=== PATIENT | female | born 1955 | race Caucasian/White ===

== ENCOUNTER → 2017-10-22 08:47 | Outpatient (CLI) | payer OTHER, SELFPAY ==
--- NOTE | 2017-10-22 | DI.MRI.S_ITS ---
PROCEDURE: MR HIP RT WO CON INDICATIONS: RIGHT HIP PAIN TECHNIQUE: Noncontrast coronal T1 spin echo and STIR through the bony pelvis. Coronal and axial T2 fast spin echo with fat saturation, sagittal T1 spin echo, and oblique axial T2 fast spin echo with fat saturation through the hip. COMPARISON: None. FINDINGS: Image quality: Excellent. Bones and joints: Severe osteoporotic changes involving right hip joint is seen with complete loss of superior right hip joint space, extensive subchondral sclerosis and cyst formation in the acetabular roof and superior portion of right femoral head as well as prominent lateral marginal osteophyte formation. There is mild marrow edema involving right femoral neck, likely represent stress reaction. No evidence of fracture or dislocation. There is no evidence of avascular necrosis. Small amount of joint effusion is seen, and no definite loose body is identified. Tendons and ligaments: The gluteus medius and minimus tendons appear intact, without associated muscle atrophy. The nearby proximal iliotibial band also appears intact. The iliopsoas tendon appears intact, without adjacent bursal fluid collections or evidence for impingement syndrome. The origin of the hamstring tendon is intact at the ischial tuberosity, as well as the associated sacrotuberous ligament. The straight and reflected heads of the rectus femoris muscle origin appear intact, as well as the conjoint tendon. The ligamentum teres appears intact where visualized. Labrum and cartilage: Abnormal contour and signal within superior anterior right hip labrum is seen suggestive of labral tear in the absence of intra-articular contrast. There is near-complete loss of articular cartilage in right femoral head. is within normal limits at less than 55 degrees. Soft tissues: Visualized muscles demonstrate normal bulk and internal signal. Quadratus femoris muscle demonstrates no internal edema to suggest ischiofemoral impingement. The proximal sciatic neurovascular bundle appears normal adjacent to the hamstring tendons. No free pelvic fluid. Bladder wall thickness is normal. Genitourinary structures and bowel loops appear normal where visualized. IMPRESSION: 1. Findings consistent with severe right hip joint osteoarthritis and stress reaction involving right femoral neck. No acute fracture or dislocation. No evidence of avascular necrosis. 2. Suggestion of superior anterior right hip labral tear. 3. No gross muscle or tendon signal abnormality. Dictated by: [place] Plaza M.D. on 10/22/2017 at 10:53 Approved by: New Plaza M.D. on 10/22/2017 at 15:16
== END ==
PROVIDERS: Family Provider Family Medicine Geriatric Medicine; PCP Family Medicine Geriatric Medicine; Visit Provider Anesthesiology Pain Medicine
DX: M25.551 Pain in right hip (principal)
CPT/HCPCS: 73721

== ENCOUNTER → 2018-10-28 10:09 | Outpatient (CLI) | payer MEDICARE, OTHER, SELFPAY ==
--- NOTE | 2018-10-28 | DI.RAD.S_ITS ---
PROCEDURE: XR LUMBAR SPINE 2-3V INDICATIONS: LOW BACK AND RIGHT HIP PAIN TECHNIQUE: 3 views of the lumbar spine were acquired. COMPARISON: [facility], MR, L-SPINE WITHOUT CONTRAST, 11/24/2008, 10:59. FINDINGS: Bones: 5 [id number] vertebrae are present. There is normal bony alignment considering the degree of degeneration present. On the lateral view there is near zefl-ke-nfin articulation between the adjacent endplates of L2-L3 and L5-S1. Overall along the lumbosacral spine there is moderately severe to severe degenerative disc disease and from L3 inferiorly facet osteoarthritis becomes progressively more prominent to the L5-S1 level where severe facet hyperostosis is present. These factors result in likelihood of significant spinal and foraminal stenosis becoming more prominent as the sacrum is approached. No vertebral body compression fractures. No suspicious bony lesions. Soft tissues: Overlying bowel gas pattern is normal. No suspicious soft tissue calcifications. IMPRESSION: No trauma found. Degenerative disc disease and facet osteoarthritis is moderately severe to severe along the lumbosacral spine and most prominent over the lower third. Spinal and foraminal stenosis would be expected in that area. Dictated by: Angel Giron M.D. on 10/28/2018 at 10:51 Approved by: Angel Giron M.D. on 10/28/2018 at 10:56
--- NOTE | 2018-10-28 | DI.MRI.S_ITS ---
PROCEDURE: MR HIP RT WO CON INDICATIONS: Anterior right hip pain TECHNIQUE: Noncontrast coronal T1 spin echo and STIR through the bony pelvis. Coronal and axial T2 fast spin echo with fat saturation, sagittal T1 spin echo, and oblique axial T2 fast spin echo with fat saturation through the hip. COMPARISON: [facility], CR, XR HIP W PEL IF DONE EVERARDO 3TO4V, 10/28/2018, 10:31. [facility], MR, MR HIP RT WO CON, 10/22/2017, 9:18. FINDINGS: Image quality: Excellent. Bones and joints: Bone marrow of the pelvic ring and proximal femurs show normal signal throughout on the left but the right hip joint shows edema tracking from the epicenter of the hip joint itself cephalad and caudad, to the intertrochanteric region. This is associated with progression of severe right hip joint osteoarthritis with subchondral cyst formation and [id number]-se-[id number] articulation. A lesser degree of moderate left hip joint osteoarthritis is present.. No intraosseous lesions or fractures. No avascular necrosis of the femoral heads. The visualized lower lumbar spine appears normally aligned. Tendons and ligaments: The gluteus medius and minimus tendons appear intact, without associated muscle atrophy. The nearby proximal iliotibial band also appears intact. The iliopsoas tendon appears intact, without adjacent bursal fluid collections or evidence for impingement syndrome. The origin of the hamstring tendon is intact at the ischial tuberosity, as well as the associated sacrotuberous ligament. The straight and reflected heads of the rectus femoris muscle origin appear intact, as well as the conjoint tendon. The ligamentum teres appears intact where visualized. Labrum and cartilage: The acetabular labrum appears intact in the absence of intra-articular contrast. Cartilage surface of the femoral head appears of normal thickness. The alpha angle of the femur is within normal limits at less than 55 degrees. Soft tissues: Visualized muscles demonstrate normal bulk and internal signal. Quadratus femoris muscle demonstrates no internal edema to suggest ischiofemoral impingement. The proximal sciatic neurovascular bundle appears normal adjacent to the hamstring tendons. No free pelvic fluid. Bladder wall thickness is normal. Genitourinary structures and bowel loops appear normal where visualized except at the left adnexa where a simple appearing cyst measures up to 3.1 x 3.2 cm in maximal axial dimension and 4.0 cm craniocaudad. IMPRESSION: Progression of severe right hip joint osteoarthritis is identified with reference to the comparison study from 10/22/17. This is associated with very severe right hip joint osteoarthritis and moderate left hip joint osteoarthritis. Incidental note is again made of a simple appearing cyst at the left adnexa measuring up to 3.1 x 3.2 x 4.0 cm. Dictated by: Angel Giron M.D. on 10/28/2018 at 16:13 Approved by: Angel Giron M.D. on 10/28/2018 at 16:20
--- NOTE | 2018-10-28 | DI.MRI.S_ITS ---
PROCEDURE: MR LUMBAR SPINE WO CON INDICATIONS: LOW BACK AND RIGHT HIP PAIN TECHNIQUE: Noncontrast sagittal T1 spin echo and T2 fast echo, sagittal STIR, axial T1 and T2 fast spin echo through the lumbar spine. In cases with scoliosis, additional coronal T2 fast spin echo may be performed. COMPARISON: [facility], MR, L-SPINE WITHOUT CONTRAST, 11/24/2008, 10:59. FINDINGS: Image quality: Excellent. Alignment and Curvature: There is normal bony alignment. Bone Marrow: Marrow is of normal overall signal. No acute vertebral body compression fractures. Spinal Cord: Conus medullaris terminates at the L1-L2 level. Visualized cord demonstrates normal signal and size. Paraspinous Soft Tissues: No paravertebral masses. T12-L1: No canal stenosis or foraminal stenosis. Mild left facet hypertrophy. L1-L2: Mild disc bulge. No canal stenosis or foraminal stenosis. L2-L3: Severe chronic disc height loss. Posterior disc plus osteophyte without canal stenosis. Mild bilateral facet hypertrophy. Mild bilateral foraminal narrowing. L3-L4: Severe chronic disc height loss. Posterior disc plus osteophyte. No canal stenosis or foraminal stenosis. L4-L5: Moderate chronic disc height loss. Diffuse posterior disc bulge. Facet and ligament hypertrophy. Borderline canal stenosis. There is a far right lateral disc bulge which impinges upon the right L4 nerve root far laterally. L5-S1: Severe chronic disc height loss. No canal stenosis. Mild right foraminal stenosis. Moderate left foraminal stenosis. Bilateral facet hypertrophy. IMPRESSION: 1. Multilevel degenerative disc disease and facet arthropathy. 2. At L4-L5, there is a far right lateral disc bulge impinging on the right L4 nerve root far laterally. There is also borderline canal stenosis with prominent bilateral facet and ligament hypertrophy. Question: Does this patient have a right L4 radiculopathy? Dictated by: Jey Altamirano M.D. on 10/28/2018 at 15:56 Approved by: Jey Altamirano M.D. on 10/28/2018 at 16:04
--- NOTE | 2018-10-28 | DI.RAD.S_ITS ---
PROCEDURE: XR HIP W PEL IF DONE LT MIN 4V INDICATIONS: LOW BACK AND RIGHT HIP PAIN TECHNIQUE: AP pelvis with lateral view(s) of the bilateral hip(s). COMPARISON: [facility], MR, MR HIP RT WO CON, 10/22/2017, 9:18. FINDINGS: Bones: No fractures or dislocations but there is severe right-sided hip osteoarthritis with subchondral cyst formation and [id number] articulation. This has progressed moderately from the comparison study 10/22/17, MR examination. Pelvic ring appears intact. No suspicious bony lesions. Soft tissues: The visualized bowel gas pattern is normal. No suspicious soft tissue calcifications. IMPRESSION: Bilateral hip joint osteoarthritis is present, severe on the right and moderate on the left. Progression of degenerative hip joint osteoarthritis on the right as compared with a greater degree of subchondral cyst formation with reference to the prior MR study from September of last year. No acute trauma found. Dictated by: Angel Giron M.D. on 10/28/2018 at 10:49 Approved by: Angel Giron M.D. on 10/28/2018 at 10:51
== END ==
PROVIDERS: Family Provider Family Medicine Geriatric Medicine; PCP Family Medicine Geriatric Medicine; Visit Provider Physician Assistant Medical
DX: M51.37 Other intervertebral disc degeneration, lumbosacral region (principal); M47.817 Spondylosis without myelopathy or radiculopathy, lumbosacral region; M51.36 Other intervertebral disc degeneration, lumbar region; M47.816 Spondylosis without myelopathy or radiculopathy, lumbar region; M16.0 Bilateral primary osteoarthritis of hip; M25.551 Pain in right hip; M54.5 Low back pain
CPT/HCPCS: 72100; 72148; 73522; 73721

== ENCOUNTER 2019-06-16 10:53 | Outpatient (RCR) | payer MEDICARE, OTHER, SELFPAY ==
--- NOTE | 2019-06-16 17:24 | PT.OIE ---
Current Diagnoses Unilateral primary osteoarthritis, right hip (06/16/19) Other instability, right hip (06/16/19) Pain in right hip (06/16/19) Visit Care Team Role Provider Type Arlene Bryant MD Attending Provider Non-Staff Family Provider Primary Care Provider Referring Provider Specialty: Family Practice Address: [address] [place] [address], [facility] [place] Email: Physical Therapy Initial Evaluation PT-OP-A Visit Information Start: 06/16/19 11:20 Freq: Status: Active Protocol: Document 06/16/19 11:20 [facility] (Rec: 06/16/19 13:47 [facility] [id number]) Out-Patient Physical Therapy Visit Information Visit Information Visit Type Initial Evaluation Visit Start Time 11:15 Visit Stop Time 12:00 Total Visit Minutes 45 Visit Number 1 PT-OP-B Current Condition Start: 06/16/19 11:20 Freq: Status: Active Protocol: Document 06/16/19 11:20 [facility] (Rec: 06/16/19 13:47 [facility] [id number]) Current Condition History of Current Condition Onset Date 2017 Current Complaints lack of ROM right hip, tightness and decreased flexibilty, pain History of Current Condition adhesive capsulitis. The doctor wants her to focus on ROM but she is not sure what to do on her own Had stem sell procedure done in January of 2018. Did have some Pt after this but it flared her so she stopped. Treatment Goals Patient/Caregiver Goals Pt's goals include improving ROM and decreasing pain Current Functional Impairments (Reported) Functional Limitations- ADL's unable to put on shoes and socks, unable to fully squat , quite a bit of difficulty lifting an object off the floor, getting into and out of the car, going up or down stairs, stadnign for a hour PT-OP-C Subjective Start: 06/16/19 11:20 Freq: Status: Active Protocol: Document 06/16/19 16:54 [facility] (Rec: 06/16/19 17:23 [facility] [email or web address]) OP-PT Pain Assessment Pain Assessment Grid Paper Pain Assessment Grid Completed Yes Location right anterior hip Pain Location Details pain across the right anterior hip and groin Intensity 6 Scale Used Numeric (1 - 10) Frequency Constant Pain Aggravating Factors Changing Position,Exercise, Standing,Walking,Bending, Lifting PT-OP-F Manual Assessment Start: 06/16/19 11:20 Freq: Status: Active Protocol: Document 06/16/19 16:54 [facility] (Rec: 06/16/19 17:23 [facility] [email or web address]) Manual Assessments Soft Tissue Assessment Soft Tissue Mobility Assessment myofascial tightness and tissue guarding throughout the iliopsoas, quadriceps, piriformis on the right. Joint Mobility Assessment Joint Mobility Assessment adhesive capsulitis of the right hip, very limited capsule mobility especially in the posterior capsule PT-OP-J Posture/Palpation/Skin Start: 06/16/19 11:20 Freq: Status: Active Protocol: Document 06/16/19 16:54 [facility] (Rec: 06/16/19 17:23 [facility] [email or web address]) Palpation Assessment Location One Palpation Location anterior head of the femur Palpation Findings Soft Tissue Tightness,Spasm, Muscle Guarding,Trigger Point PT-OP-K Range of Motion Start: 06/16/19 11:20 Freq: Status: Active Protocol: Document 06/16/19 16:54 [facility] (Rec: 06/16/19 17:23 [facility] [email or web address]) Hip Goniometric Range of Motion Hip Right Hip ROM WFL No Testing Position Supine Flexion w/Knee Flexed 85 Straight Leg Raise 50 Extension 5 Abduction 15 Internal Rotation 10 External Rotation 20 Hip ROM Limitations Hip ROM Limitations Soft Tissue Tightness, Contracture Comments adhesvise capsulitis PT-OP-M Strength Start: 06/16/19 11:20 Freq: Status: Active Protocol: Document 06/16/19 16:54 [facility] (Rec: 06/16/19 17:23 [facility] [email or web address]) Hip Strength Hip Manual Muscle Testing Right Flexion (L2) 3+ Fair+ Extension (S1) 4 Good Abduction 4 Good External Rotation 4 Good PT-OP-Q Treatments Start: 06/16/19 11:20 Freq: Status: Active Protocol: Document 06/16/19 16:54 [facility] (Rec: 06/16/19 17:23 [facility] [email or web address]) Therapeutic Exercises Other Exercises 3 Other Exercise Name aquatic exercises packet given for hip ROM Side bilateral Comments pt has access to a private pool 2 Other Exercise Name single knee to 80 degreees on the right with suport Side right Reps/Minutes hold 10-15 minutes 1 Other Exercise Name rock backs with self capsule stretch Side bilateral Manual Therapy Treatment Soft Tissue Mobilization 1 Body Location R over the anterior quads, iliopsoas Mobilization Type Myofascial Release Intensity/Depth Moderate Body Position Supine PT-OP-T Assessment and Plan Start: 06/16/19 11:20 Freq: Status: Active Protocol: Document 06/16/19 16:54 [facility] (Rec: 06/16/19 17:23 [facility] [email or web address]) Physical Therapy Assessment Rehab Potential Rehabilitation Potential Good Evaluation Complexity Number of Personal Factors/Comorbidities 0 Number of Body Systems Impaired 1-2 Clinical Presentation at Evaluation Stable Impairments Impairments Activity Tolerance,Functional Mobility,Pain,Posture,ROM,Soft Tissue Mobility,Strength Goals Four Impairment Limited walking duration due to hip pain to 1-2 miles Custodial Goal (LTG) Halle reports a improvement with walking distance to increase to 3 miles LTG Duration 8 weeks Three Impairment right sided hip pain rated 6/ 10 Alterations Tailor Goal (LTG) With manual therapy techniques and home stretches Halle is able to lessen her pain levels to 2-3/10 Two Impairment Pt has great difficulty with donning and doff socks and shoes on the right Alterations Tailor Goal (LTG) Halle is able to improve hip mobility allowing her to improve ADL's like donning and doffing her shoes and socks LTG Duration 8 weeks One Impairment limited hip ROM on the right Alterations Tailor Goal (LTG) Halle is able to improve right sided hip flexion from 80 degrees to 110 degrees LTG Duration 8 weeks Assessment Summary Assessment Halle presents to physical therapy today with right hip OA. She presents with ROM restrictions especially into flexion. Her pain is 6/10. She is limited with ADL/s that include squatting, donning and doffing shoes and socks, getting into and out of a car, and walking more that a mile. She is guarded throughout the anterior iliopsoas, quadriceps, and posterior glutes and ITB. She was given a home program today for hip ROM and stretches. She will be put on hold for PT after today as our clinic is closing temporarily for the the COVID 19 virus. Halle is a good candidate for PT Physical Therapy Plan Frequency and Duration Frequency of Treatment 1x/Week Duration of Treatment 8 Plan of Care Start Date 06/16/19 Plan of Care End Date 08/17/19 Therapeutic Interventions Therapeutic Interventions Home Exercise Program,Manual Therapy,Patient/Caregiver Education,Self-Care/Home Management,Soft Tissue Mobilization,Therapeutic Exercises Next Visit Focus/Plan Next Note Type Treatment Note Next Visit Plan reassess hip ROM next visit and check in with how exercises are going for home
--- NOTE | 2019-06-16 17:24 | PT.OPPOC ---
Physical, Occupational & Speech Therapy At [facility] Current Diagnoses Unilateral primary osteoarthritis, right hip (06/16/19) Other instability, right hip (06/16/19) Pain in right hip (06/16/19) Visit Care Team Role Provider Type Arlene Bryant MD Attending Provider Non-Staff Family Provider Primary Care Provider Referring Provider Specialty: Family Practice Address: [address] [place] [address], [facility] Email: Plan Of Care PT-OP-T Assessment and Plan Start: 06/16/19 11:20 Freq: Status: Active Protocol: Document 06/16/19 16:54 [facility] (Rec: 06/16/19 17:23 [facility] [email or web address]) Physical Therapy Assessment Rehab Potential Rehabilitation Potential Good Evaluation Complexity Number of Personal Factors/Comorbidities 0 Number of Body Systems Impaired 1-2 Clinical Presentation at Evaluation Stable Impairments Impairments Activity Tolerance,Functional Mobility,Pain,Posture,ROM,Soft Tissue Mobility,Strength Goals Four Impairment Limited walking duration due to hip pain to 1-2 miles Process Control Tech Goal (LTG) Halle reports a improvement with walking distance to increase to 3 miles LTG Duration 8 weeks Three Impairment right sided hip pain rated 6/ 10 Alf Goal (LTG) With manual therapy techniques and home stretches Halle is able to lessen her pain levels to 2-3/10 Two Impairment Pt has great difficulty with donning and doff socks and shoes on the right Alf Goal (LTG) Halle is able to improve hip mobility allowing her to improve ADL's like donning and doffing her shoes and socks LTG Duration 8 weeks One Impairment limited hip ROM on the right Process Control Tech Goal (LTG) Halle is able to improve right sided hip flexion from 80 degrees to 110 degrees LTG Duration 8 weeks Assessment Summary Assessment Halle presents to physical therapy today with right hip OA. She presents with ROM restrictions especially into flexion. Her pain is 6/10. She is limited with ADL/s that include squatting, donning and doffing shoes and socks, getting into and out of a car, and walking more that a mile. She is guarded throughout the anterior iliopsoas, quadriceps, and posterior glutes and ITB. She was given a home program today for hip ROM and stretches. She will be put on hold for PT after today as our clinic is closing temporarily for the the COVID 19 virus. Halle is a good candidate for PT Physical Therapy Plan Frequency and Duration Frequency of Treatment 1x/Week Duration of Treatment 8 Plan of Care Start Date 06/16/19 Plan of Care End Date 08/17/19 Therapeutic Interventions Therapeutic Interventions Home Exercise Program,Manual Therapy,Patient/Caregiver Education,Self-Care/Home Management,Soft Tissue Mobilization,Therapeutic Exercises Next Visit Focus/Plan Next Note Type Treatment Note Next Visit Plan reassess hip ROM next visit and check in with how exercises are going for home Plan of Care Dates Plan of Care Start Date 06/16/19 Plan of Care End Date 08/17/19 Electronically Signed by: Camilla Olivarez, PT 06/16/19 [id number] Please Sign and Return: I have reviewed this Plan of Care and certify that the skilled therapy services above are required to meet the patient?s needs. Physician Signature Date Printed Name and Credentials Clinical Instructor Signature Printed Name and Credentials
--- NOTE | 2019-11-30 14:27 | PT.OPDS ---
Current Diagnoses Unilateral primary osteoarthritis, right hip (06/16/19) Other instability, right hip (06/16/19) Pain in right hip (06/16/19) Visit Care Team Role Provider Type Arlene Bryant MD Attending Provider Non-Staff Family Provider Primary Care Provider Referring Provider Specialty: Family Practice Address: [address] [place], [place] [address]day [place] [address] Email: Visit Number Visit Number 1 Discharge Summary PT-OP-B Current Condition Start: 06/16/19 11:20 Freq: Status: Active Protocol: Document 06/16/19 11:20 [facility] (Rec: 06/16/19 13:47 [facility] [id number]) Current Condition History of Current Condition Onset Date 2017 Current Complaints lack of ROM right hip, tightness and decreased flexibilty, pain History of Current Condition adhesive capsulitis. The doctor wants her to focus on ROM but she is not sure what to do on her own Had stem sell procedure done in of 2017. Did have some Pt after this but it flared her so she stopped. Treatment Goals Patient/Caregiver Goals Pt's goals include improving ROM and decreasing pain Current Functional Impairments (Reported) Functional Limitations- ADL's unable to put on shoes and socks, unable to fully squat , quite a bit of difficulty lifting an object off the floor, getting into and out of the car, going up or down stairs, stadnign for a hour PT-OP-C Subjective Start: 06/16/19 11:20 Freq: Status: Active Protocol: Document 06/16/19 16:54 [facility] (Rec: 06/16/19 17:23 [facility] [email or web address]) OP-PT Pain Assessment Pain Assessment Grid Paper Pain Assessment Grid Completed Yes Location right anterior hip Pain Location Details pain across the right anterior hip and groin Intensity 6 Scale Used Numeric (0 - 10) Frequency Constant Pain Aggravating Factors Changing Position,Exercise, Standing,Walking,Bending, Lifting PT-OP-F Manual Assessment Start: 06/16/19 11:20 Freq: Status: Active Protocol: Document 06/16/19 16:54 [facility] (Rec: 06/16/19 17:23 [facility] [email or web address]) Manual Assessments Soft Tissue Assessment Soft Tissue Mobility Assessment myofascial tightness and tissue guarding throughout the iliopsoas, quadriceps, piriformis on the right. Joint Mobility Assessment Joint Mobility Assessment adhesive capsulitis of the right hip, very limited capsule mobility especially in the posterior capsule PT-OP-J Posture/Palpation/Skin Start: 06/16/19 11:20 Freq: Status: Active Protocol: Document 06/16/19 16:54 [facility] (Rec: 06/16/19 17:23 [facility] [email or web address]) Palpation Assessment Location One Palpation Location anterior head of the femur Palpation Findings Soft Tissue Tightness,Spasm, Muscle Guarding,Trigger Point PT-OP-K Range of Motion Start: 06/16/19 11:20 Freq: Status: Active Protocol: Document 06/16/19 16:54 [facility] (Rec: 06/16/19 17:23 [facility] [email or web address]) Hip Goniometric Range of Motion Hip Right Hip ROM WFL No Testing Position Supine Flexion w/Knee Flexed 85 Straight Leg Raise 50 Extension 5 Abduction 15 Internal Rotation 10 External Rotation 20 Hip ROM Limitations Hip ROM Limitations Soft Tissue Tightness, Contracture Comments adhesvise capsulitis PT-OP-M Strength Start: 06/16/19 11:20 Freq: Status: Active Protocol: Document 06/16/19 16:54 [facility] (Rec: 06/16/19 17:23 [facility] [email or web address]) Hip Strength Hip Manual Muscle Testing Right Flexion (L2) 3+ Fair+ Extension (S1) 4 Good Abduction 4 Good External Rotation 4 Good PT-OP-T Assessment and Plan Start: 06/16/19 11:20 Freq: Status: Active Protocol: Document 11/30/19 14:26 [facility] (Rec: 11/30/19 14:27 [facility] [email or web address]) Physical Therapy Assessment Assessment Summary Assessment Halle has not been seen since the Covid 19 pandemic. She has not returned our phone call to resume PT. SHe will be discharged from PT at this time Physical Therapy Plan Discharge Physical Therapy Discharge Reasons No Longer Attending PT
== END 2019-12-01 10:55 ==
LOC: PHYS 10:53
PROVIDERS: Family Provider Family Medicine; PCP Family Medicine; Referring Provider Family Medicine; Visit Provider Family Medicine
DX: M16.11 Unilateral primary osteoarthritis, right hip (principal); M25.351 Other instability, right hip; M25.551 Pain in right hip
CPT/HCPCS: 97140; 97161

== ENCOUNTER → 2020-11-24 11:45 | Outpatient (CLI) | payer MEDICARE, OTHER, SELFPAY ==
--- NOTE | 2020-11-24 | DI.MRI.S_ITS ---
PROCEDURE: MR LUMBAR SPINE WO CON INDICATIONS: Lumbago with sciatica, unspecified side TECHNIQUE: Noncontrast sagittal T1 spin echo and T2 fast echo, sagittal STIR, axial T1 and T2 fast spin echo through the lumbar spine. In cases with scoliosis, additional coronal T2 fast spin echo may be performed. COMPARISON: [facility], MR, MR LUMBAR SPINE WO CON, 10/28/2018, 14:20. [facility], CR, XR LUMBAR SPINE 2-3V, 10/28/2018, 10:34. [facility], MR, LUMBAR SPINE W&W/O CONTRAST, 07/07/2012, 10:33. FINDINGS: Image quality: Excellent. Alignment and Curvature: There is normal bony alignment. Bone Marrow: Marrow is of normal overall signal. No acute vertebral body compression fractures. Spinal Cord: Conus medullaris terminates at the L1-L2 level. Visualized cord demonstrates normal signal and size. Paraspinous Soft Tissues: No paravertebral masses. T11-T12: At least moderate loss of disc height is seen. Bridging endplate osteophytes are seen. Likely mild disc bulge can be seen. No significant neural foraminal or central canal narrowing can be seen. When comparison is made with the prior images, these findings are similar. T12-L1: Mild loss of disc height is seen. Loss of disc signal is seen. Remote Schmorl's nodes can be seen involving the superior endplate of T12, as before. Mild generalized disc bulge is seen. No neural foraminal or significant central canal narrowing can be seen. Stable from the prior study. L1-L2: The disc height is well-preserved. Loss of disc signal is seen at this level. Mild generalized disc bulge is seen. There is a mild central disc protrusion. No significant neural foraminal or central canal narrowing can be seen. L2-L3: Severe loss of disc height and disc signal can be seen. There is a degree of bony bridging seen of the vertebral bodies anteriorly. Reactive marrow endplate changes are seen, which are hyperintense on T1-weighted and T2-weighted imaging and most consistent with fatty metaplasia (Modic type II changes). At least moderate disc bulge is seen, which is eccentric to the right. There is a right foraminal disc protrusion seen. Mild facet joint hypertrophy is seen. There is moderate right-sided and mild left-sided neural foraminal narrowing seen. Mild central canal narrowing is seen. The degree of bony bridging appears more prominent on the current study than in 2019. L3-L4: At least moderate loss of disc height and disc signal can be seen. At least moderate disc bulge is seen, which is eccentric to the right. Reactive marrow endplate changes are seen which are hypointense on T1-weighted imaging and hyperintense on T2 weighted imaging, which is most consistent with edema (Modic type I changes). There is moderate to prominent right-sided and [id number] left-sided facet hypertrophy seen. There is at least moderate right-sided neural foraminal narrowing seen, with a mild degree of compression upon the exiting right L3 nerve root. Minimal to mild left-sided neural foraminal narrowing can be seen. Moderate central canal narrowing is seen. The degree of right-sided neural foraminal narrowing is clearly progressed compared to the prior examination. There is also slight progression of central canal narrowing compared to 2019. L4-L5: Moderate loss of disc height is seen. Loss of disc signal is seen. Moderate generalized disc bulge is seen. Prominent facet hypertrophy is seen at this level. There is moderate to severe right-sided neural foraminal narrowing seen, with associated mild compression upon exiting right L4 nerve root. There is moderate left-sided neural foraminal narrowing seen. Moderate central canal narrowing is seen. When comparison is made with the prior images, these findings are similar. L5-S1: Moderate to severe loss of disc height and disc signal can be seen. Reactive marrow endplate changes are seen anteriorly, which are hypointense on T1-weighted imaging and hyperintense on T2 weighted imaging, which is most consistent with edema (Modic type I changes). At least moderate disc bulge is seen, which is eccentric to the left. At least moderate facet hypertrophy is seen. There is at least moderate right-sided and moderate to severe left-sided neural foraminal narrowing seen. There is a degree of compression seen upon the exiting nerve roots. The central canal is widely patent. No significant change from the prior. IMPRESSION: Multiple levels of lumbar spine degenerative change are seen, which are worst at L2-L3 and L5-S1. The degrees of degenerative change has progressed at L2-L3 and L3-L4 compared to 2019. Several sites of significant neural foraminal narrowing can be seen, with associated exiting nerve root compression. Dictated by: Jaycob Sahu M.D. on 11/24/2020 at 12:42 Approved by: Jaycob Sahu M.D. on 11/24/2020 at 12:50
== END ==
PROVIDERS: Family Provider Family Medicine; PCP Family Medicine; Referring Provider Family Medicine; Visit Provider Family Medicine
DX: M54.40 Lumbago with sciatica, unspecified side (principal); M47.816 Spondylosis without myelopathy or radiculopathy, lumbar region; M47.817 Spondylosis without myelopathy or radiculopathy, lumbosacral region; M48.061 Spinal stenosis, lumbar region without neurogenic claudication; M48.07 Spinal stenosis, lumbosacral region
CPT/HCPCS: 72148

== ENCOUNTER → 2020-12-06 07:44 | Outpatient (CLI) | payer MEDICARE, OTHER, SELFPAY ==
--- NOTE | 2020-12-06 | DI.MRI.S_ITS ---
PROCEDURE: MR HIP RT W CON INDICATIONS: ARTHRITIS RIGHT HIP TECHNIQUE: After the administration of 10 mL of dilute intra-articular Gadolinium contrast, coronal STIR of the bony pelvis; coronal and oblique axial T1 spin echo with fat saturation, axial T2 fast spin echo with fat saturation, sagittal T1 spin echo with and without fat saturation of the involved hip. COMPARISON: None. FINDINGS: BONES AND JOINTS: Osseous structures: No fracture identified. There is severe right hip joint degeneration with full-thickness chondral loss and [id number] appearance. There is extensive subchondral cystic change, although relative paucity of marrow edema. Scattered degenerative subchondral sclerosis and spurring. Sacroiliac joints: Unremarkable in signal intensity. Lower lumbar spine: Diffuse spondylosis and facet arthropathy. Other: No evidence of osteonecrosis. TENDONS AND LIGAMENTS: Gluteus medius and minimus tendons: Intact. No muscle atrophy. Proximal iliotibial band: Intact. Iliopsoas tendon: Intact. Origin of the hamstring tendon: Intact. Rectus femoris muscle origins: Intact Ligamentum teres: Intact where visualized. LABRUM: Labrum: There is circumferential chronic degeneration and fraying of the labrum. No discrete intrasubstance gadolinium signal abnormality. Alpha angle of the femur: Markedly abnormal measuring 88?. This is due to large marginal osteophyte formation. SOFT TISSUES: Visualized muscles: Normal bulk and internal signal. Incidental intramuscular lipoma involving the gluteus minimus muscle. Quadratus femoris muscle: Normal. Proximal sciatic neurovascular bundle: Normal adjacent to the hamstring tendons. Other: No pelvic free fluid. Bladder: Normal. Genitourinary structures and bowel loops: Normal where visualized. IMPRESSION: Severe right hip osteoarthritis, with full-thickness chondral loss and prominent subchondral cystic changes. Chronic circumferential degenerative fraying of the labrum Bulky marginal osteophyte formation, with associated increased alpha angle of the femur as above. Dictated by: Mushtaq Galeas M.D. on 12/06/2020 at 11:10 Approved by: Mushtaq Galeas M.D. on 12/06/2020 at 11:30
--- NOTE | 2020-12-06 | DI.RAD.S_ITS ---
PROCEDURE: FL HIP INJECTION MR/CT RT INDICATIONS: ARTHRITIS RIGHT HIP TECHNIQUE: The indications, alternatives, benefits, risks, and complications of the procedure were explained to the patient. Written informed consent was obtained and placed in the chart. The hip was examined fluoroscopically with the legs fixed in slight internal rotation, and a site for needle placement chosen for entry into the hip joint from an anterior approach. Care was taken to locate the common femoral artery and vein beforehand. The skin was prepped and draped in a sterile fashion, and 1% Lidocaine infiltrated from skin down to joint capsule. A spinal needle was inserted into the joint, and a small amount of iodinated contrast media injected to confirm intra-articular placement of the needle tip. This was followed by approximately 10 mL dilute solution of a gadolinium containing MR contrast agent. The needle was removed and a dressing was applied. The patient was given postprocedural instructions and sent to the MR suite for imaging. COMPARISON: [facility], HIP INJECTION FOR MR/CT, 11/24/2008, 10:28. FINDINGS: A single fluoroscopic spot image demonstrates intra-articular location of injected iodinated contrast. IMPRESSION: Successful fluoroscopically guided administration of dilute Gadolinium solution into the hip joint for MR arthrogram. Dictated by: Mushtaq Galeas M.D. on 12/06/2020 at 13:23 Approved by: Mushtaq Galeas M.D. on 12/06/2020 at 13:24
== END ==
PROVIDERS: Family Provider Family Medicine; PCP Naturopath; Referring Provider Family Medicine; Visit Provider Family Medicine
DX: S73.191D Other sprain of right hip, subsequent encounter (principal); M16.11 Unilateral primary osteoarthritis, right hip
CPT/HCPCS: 27093; 73722; 77002

== ENCOUNTER → 2021-08-10 14:57 | Outpatient (CLI) | payer MEDICARE, OTHER, SELFPAY ==
--- NOTE | 2021-08-10 | DI.NM.S_ITS ---
PROCEDURE: NM EXERCISE TREADMILL NON NUC COMPARISON: None. INDICATIONS: Dyspnea, unspecified FINDINGS: The patient exercised for 5 minutes and 28 seconds, reaching 7.0 METs, JOAN +9% and 95% of maximum predicted heart rate. Hypertensive response to exercise (rest BP 130/80mm Hg, max BP 220/90mm Hg). The patient developed chest tightness at 3 minute fish of exercise and it worsened with continued exercise and slowly decreased during recovery. After nitroglyercin X3, a very slight chest pain (0.5/10) was still present and she was wheeled to [facility] emergency room for further evaluation. During recovery, mild horizontal ST depressions were noted in the inferior and anterolateral leads. Frequent PVCs during recovery. IMPRESSION: Abnormal treadmill ECG only nuclear stress test. 1) ST changes suggestive of ischemia (or from hypertensive response). 2) Angina with exercise. The patient developed chest tightness at 3 minute fish of exercise and it worsened with continued exercise and slowly decreased during recovery. After nitroglyercin X3, a very slight chest pain (0.5/10) was still present and she was wheeled to [facility] emergency room for further evaluation. 3) Mildly reduced exercise tolerance (7.0 METs, JOAN +9%). Target heart rate achieved. 4) Hypertensive response to exercise (rest BP 130/80mm Hg, max BP 220/90mm Hg). 5) No prior stress test available for comparison. Dictated by: Ruthy Estevez MD on 08/10/2021 at 17:29 Approved by: Ruthy Estevez MD on 08/10/2021 at 17:35
[2021-08-10 16:06] LABS: COVID19 -Nasal RAPID Negative (Negative)
== END ==
PROVIDERS: Family Provider Family Medicine; PCP Naturopath; Referring Provider Student in an Organized Health Care Education/Training Program; Visit Provider Student in an Organized Health Care Education/Training Program
DX: R94.31 Abnormal electrocardiogram [ECG] [EKG] (principal); R06.00 Dyspnea, unspecified; R07.9 Chest pain, unspecified
CPT/HCPCS: 87635; 93016; 93017; 93018

== ENCOUNTER 2021-08-10 17:16 | Observation (INO) | payer MEDICARE, OTHER, SELFPAY ==
[2021-08-10] VITALS (21 sets, daily range): BP systolic 131–162; BP diastolic 64–85; PULSE 69–81; RESP 15–25; TEMP 36.8; O2SAT 95–99
--- NOTE | 2021-08-10 17:25 | DI.RAD.S_ITS ---
PROCEDURE: XR CHEST 1V INDICATIONS: chest pain TECHNIQUE: One view of the chest was acquired. COMPARISON: None. FINDINGS: Surgical changes and devices: Surgical clips noted in both breasts and both axilla. Lungs and pleura: Lungs are clear. No pleural effusions or pneumothorax. Mediastinum: Mediastinal contours appear normal. Heart size is normal. Bones and chest wall: No suspicious bony lesions. Overlying soft tissues appear unremarkable. IMPRESSION: No acute cardiopulmonary findings Approved by: Myles Stern M.D. on 08/10/2021 at 17:12
--- NOTE | 2021-08-10 17:31 | ED_ITS ---
HPI - Chest Pain <Elen Gretchen Win DO - Last Filed: 08/17/21 19:19> General Chief Complaint: Chest Pain Stated Complaint: Chest pain Time Seen by Provider: 08/10/21 17:28 Source: patient Mode of arrival: Wheelchair Limitations: no limitations History of Present Illness HPI narrative: This is a 65-year-old female who presents for chest pain and ST changes on stress testing as an outpatient. Patient was at stress test today was reportedly had some mild ST depression in the anterior inferior leads. Patient had significant chest pressure with shortness of breath, no nausea or diaphoresis. No syncope. Patient received nitro x3 sublingually which improved her chest pressure from its peak at 4/10 to 110 but did not resolve it. Patient does not have known cardiac history but has a brother who from an MS around age 50 and states both parents had cardiac issues. She does not take any daily medications, other than recently starting an 81 mg aspirin. Patient does not use tobacco, occasional alcohol, no illicit. She is accompanied by her today. I spoke with Dr. Estevez who read her stress test and notes some mild ST changes. Which he would call intermediate risk for her stressed test. Related Data Home Medications Medication Instructions Recorded Confirmed aspirin 81 mg chewable tablet 81 mg PO DAILY 08/11/21 08/11/21 Allergies Allergy/AdvReac Type Severity Reaction Status Date / Time acetaminophen [From Percocet] Allergy Verified 08/10/21 17:26 citalopram Allergy Verified 08/10/21 17:26 gabapentin Allergy Verified 08/10/21 17:26 oxycodone [From Percocet] Allergy Verified 08/10/21 17:26 Review of Systems <Elen Win DO - Last Filed: 08/17/21 19:19> Review of Systems ROS Unobtainable: All systems reviewed & are unremarkable except as noted in HPI and below Patient History <Elen Win DO - Last Filed: 08/17/21 19:19> Medical History (Updated 08/11/21 @ 01:37 by Zeyad Frederick MD) No pertinent past medical history Surgical History (Updated 08/11/21 @ 01:37 by Zeyad Frederick MD) History of hip replacement History of tonsillectomy Family History (Updated 08/11/21 @ 01:38 by Zeyad Frederick MD) Father Valvular heart disease Mother Myocardial infarct Brother CAD (coronary artery disease) Social History household members: significant other Smoking Status: Never smoker Smoking Status: Never smoker alcohol intake frequency: holidays/special occasions only Substance Use Type: does not use Exam <Elen Win DO - Last Filed: 08/17/21 19:19> Narrative Exam Narrative: GENERAL: Alert and oriented x three, mild distress. HEENT: Head normocephalic, atraumatic, EOMI, pupils reactive, face symmetric, moist mucous membranes NECK: Supple, full range of motion CARDIOVASCULAR: Regular rate and rhythm without murmurs, rubs or gallops. RESPIRATORY: Breath sounds equal bilaterally, no wheezes rales or rhonchi. ABDOMEN: Soft, nontender. Normoactive bowel sounds all 4 quadrants. No guarding or rebound, rigidity, no mass : No CVA tenderness EXTREMITIES: Normal range of motion. Neurovascularly intact NEUROLOGICAL: Cranial nerves II through XII grossly intact. Moving all extremities SKIN: Warm, dry, no petechiae, no rashes or lesions. Initial Vital Signs Initial Vital Signs: Vital Signs Pulse Rate 81 08/10/21 17:20 Pulse Oximetry 98 08/10/21 17:20 <Paulette Canela MD - Last Filed: 08/11/21 03:39> Initial Vital Signs Initial Vital Signs: Vital Signs Pulse Rate 81 08/10/21 17:20 Pulse Oximetry 98 08/10/21 17:20 Course <Elen Win DO - Last Filed: 08/17/21 19:19> Orders Ordered: Discontinued Medications Acetaminophen (Acetaminophen 325 Mg Tablet) 650 mg PO Q6HR PRN PRN Reason: Fever/Mild Pain (1-3) Last Admin: 08/11/21 01:26 Dose: 650 mg Documented by: FUNMILAYO Amlodipine Besylate (Amlodipine 5 Mg Tablet) 5 mg PO NOW ONE Stop: 08/10/21 22:06 Last Admin: 08/10/21 22:43 Dose: 5 mg Documented by: NAIF Aspirin (Aspirin 81 Mg Chew Tab) 324 mg PO NOW ONE Stop: 08/10/21 17:29 Last Admin: 08/10/21 17:54 Dose: 324 mg Documented by: CALIN Heparin Sodium (Porcine) (Heparin 5,000 Unit/Ml Vial) 4,000 unit IV NOW ONE Stop: 08/10/21 17:31 Last Admin: 08/10/21 17:47 Dose: Not Given Documented by: CALIN Sodium Chloride (Normal Saline 0.9%) 1,000 mls @ 150 mls/hr IV CONT JEVON Last Admin: 08/10/21 17:54 Dose: 150 mls/hr Documented by: CALIN Heparin Sodium/Dextrose (Heparin Drip) 25,000 unit in 500 mls @ 20 mls/hr IV CONT JEVON; Protocol Last Admin: 08/10/21 17:47 Dose: Not Given Documented by: CALIN Nitroglycerin (Nitroglycerin) 50 mg in 250 mls @ 1.5 mls/hr IV TITRATE [facility]; Protocol Last Admin: 08/10/21 17:48 Dose: Not Given Documented by: CALIN Dextrose/Sodium Chloride (Dextrose 5%-0.9% Ns) 1,000 mls @ 100 mls/hr IV CONT [facility] Last Admin: 08/11/21 01:19 Dose: 100 mls/hr Documented by: FUNMILAYO Naloxone HCl (Naloxone 0.4 Mg/Ml Vial) 0.2 mg IV Q2MIN PRN PRN Reason: Opiate Reversal Nitroglycerin (Nitroglycerin Oint 1 Inch/Gm Oint...G.) 0.5 inch TOP NOW ONE Stop: 08/10/21 17:45 Last Admin: 08/10/21 17:52 Dose: 0.5 inch Documented by: CALIN Reevaluation(s) Reevaluation #1: Chest pressure has resolved with nitro paste. Time: 18:30 Consultations Consultation #1: Dr. Estevez [facility] cardiology read treadmill stress test and recommends nitro paste. No heparin or nitro drip at this point. Patient did have a hypertensive response with her stress testing so he does recommend amlodipine and having nitro paste. If chest pain resolved negative troponin x2. At this time plan would be to obtain troponins x2 if patient continues to be chest pain-free with no acute EKG changes and negative troponin he would ask that we keep patient for observation and new med stress testing tomorrow. If positive he would ask us to recontact. Time: 17:50 Vital Signs Vital signs: Vital Signs - 8 hr 08/10/21 20:00 08/10/21 20:30 08/10/21 21:00 Pulse Rate 72 75 72 Respiratory Rate 19 23 Blood Pressure 138/66 142/71 H 134/66 Pulse Oximetry 96 97 97 08/10/21 21:30 08/10/21 22:00 08/10/21 22:30 Pulse Rate 69 69 72 Respiratory Rate Blood Pressure Pulse Oximetry 96 97 96 08/10/21 22:46 08/10/21 23:10 Pulse Rate 71 71 Respiratory Rate Blood Pressure 135/67 Pulse Oximetry 96 97 <Paulette Canela MD - Last Filed: 08/11/21 03:39> Orders Ordered: Discontinued Medications Acetaminophen (Acetaminophen 325 Mg Tablet) 650 mg PO Q6HR PRN PRN Reason: Fever/Mild Pain (1-3) Last Admin: 08/11/21 01:26 Dose: 650 mg Documented by: FUNMILAYO Amlodipine Besylate (Amlodipine 5 Mg Tablet) 5 mg PO NOW ONE Stop: 08/10/21 22:06 Last Admin: 08/10/21 22:43 Dose: 5 mg Documented by: NAIF Aspirin (Aspirin 81 Mg Chew Tab) 324 mg PO NOW ONE Stop: 08/10/21 17:29 Last Admin: 08/10/21 17:54 Dose: 324 mg Documented by: CALIN Heparin Sodium (Porcine) (Heparin 5,000 Unit/Ml Vial) 4,000 unit IV NOW ONE Stop: 08/10/21 17:31 Last Admin: 08/10/21 17:47 Dose: Not Given Documented by: CALIN Sodium Chloride (Normal Saline 0.9%) 1,000 mls @ 150 mls/hr IV CONT JEVON Last Admin: 08/10/21 17:54 Dose: 150 mls/hr Documented by: CALIN Heparin Sodium/Dextrose (Heparin Drip) 25,000 unit in 500 mls @ 20 mls/hr IV CONT JEVON; Protocol Last Admin: 08/10/21 17:47 Dose: Not Given Documented by: CALIN Nitroglycerin (Nitroglycerin) 50 mg in 250 mls @ 1.5 mls/hr IV TITRATE JEVON; Protocol Last Admin: 08/10/21 17:48 Dose: Not Given Documented by: CALIN Dextrose/Sodium Chloride (Dextrose 5%-0.9% Ns) 1,000 mls @ 100 mls/hr IV CONT JEVON Last Admin: 08/11/21 01:19 Dose: 100 mls/hr Documented by: FUNMILAYO Naloxone HCl (Naloxone 0.4 Mg/Ml Vial) 0.2 mg IV Q2MIN PRN PRN Reason: Opiate Reversal Nitroglycerin (Nitroglycerin Oint 1 Inch/Gm Oint...G.) 0.5 inch TOP NOW ONE Stop: 08/10/21 17:45 Last Admin: 08/10/21 17:52 Dose: 0.5 inch Documented by: CALIN Vital Signs Vital signs: Vital Signs - 8 hr 08/10/21 20:00 08/10/21 20:30 08/10/21 21:00 Pulse Rate 72 75 72 Respiratory Rate 19 23 Blood Pressure 138/66 142/71 H 134/66 Pulse Oximetry 96 97 97 08/10/21 21:30 08/10/21 22:00 08/10/21 22:30 Pulse Rate 69 69 72 Respiratory Rate Blood Pressure Pulse Oximetry 96 97 96 08/10/21 22:46 08/10/21 23:10 Pulse Rate 71 71 Respiratory Rate Blood Pressure 135/67 Pulse Oximetry 96 97 MDM - Chest Pain <Elen Win DO - Last Filed: 08/17/21 19:19> Lab Data Result diagrams: 08/11/21 05:00 08/11/21 05:00 Labs: Lab Results 08/10/21 08/10/21 08/10/21 Range/Units 17:20 17:20 17:20 WBC 6.2 (4.5-11.0) X10^3/uL RBC 4.13 (4.0-5.2) X10^6/uL Hgb 11.2 L (12.0-16.0) g/dL Hct 33.2 L (36-46) % MCV 80.3 (80-100) fL MCH 27.1 (26-34) PG MCHC 33.8 (30-36) % RDW 14.0 (11.6-14.8) % Plt Count 247 (150-400) X10^3/uL Neut % (Auto) 54.1 (50-75) % Lymph % (Auto) 26.4 (25-40) % [place] % (Auto) 13.1 (3-14) % Eos % (Auto) 5.6 H (2-4) % Baso % (Auto) 0.8 (0-2) % Neut # (Auto) 3400 (0307-6681) /uL Lymph # (Auto) 1600 (5311-5106) /uL [place] # (Auto) 800 (0-900) /uL Eos # (Auto) 300 (0-450) /uL Baso # (Auto) 100 (0-100) /uL PT 10.9 (10.1-12.7) SECONDS INR 1.0 (0.9-1.3) APTT 31 (26.4-36.2) SECONDS Sodium 136 L (137-145) mmol/L Potassium 4.0 (3.4-5.1) mmol/L Chloride 102 (98-107) mmol/L Carbon Dioxide 28 (22-32) mmol/L BUN 21 H (7-17) mg/dL Creatinine 0.89 (0.52-1.04) mg/dL Estimated GFR > 60 (>60) mL/min BUN/Creatinine Ratio 23.6 H (6-22) Glucose 93 (80-110) mg/dL Calcium 9.3 (8.4-10.2) mg/dL Magnesium 2.3 (1.6-2.3) mg/dL Total Bilirubin 0.3 (0.2-1.3) mg/dL AST 38 H (14-36) IU/L ALT 17 (<35) IU/L Alkaline Phosphatase 66 (38-126) U/L Total Creatine Kinase 91 (30-135) U/L CK-MB (CK-2) TNP CK-MB (CK-2) Rel Index TNP Troponin I < 0.012 (0.01-0.034) ng/mL Total Protein 7.7 (6.3-8.2) g/dL Albumin 4.5 (3.5-5.0) g/dL Globulin 3.2 (1.7-4.1) g/dL Albumin/Globulin Ratio 1.4 (1.0-2.8) Lipase 88 (23-300) U/L 08/10/21 Range/Units 19:52 WBC (4.5-11.0) X10^3/uL RBC (4.0-5.2) X10^6/uL Hgb (12.0-16.0) g/dL Hct (36-46) % MCV (80-100) fL MCH (26-34) PG MCHC (30-36) % RDW (11.6-14.8) % Plt Count (150-400) X10^3/uL Neut % (Auto) (50-75) % Lymph % (Auto) (25-40) % [place] % (Auto) (3-14) % Eos % (Auto) (2-4) % Baso % (Auto) (0-2) % Neut # (Auto) (4655-6123) /uL Lymph # (Auto) (1492-0160) /uL [place] # (Auto) (0-900) /uL Eos # (Auto) (0-450) /uL Baso # (Auto) (0-100) /uL PT (10.1-12.7) SECONDS INR (0.9-1.3) APTT (26.4-36.2) SECONDS Sodium (137-145) mmol/L Potassium (3.4-5.1) mmol/L Chloride (98-107) mmol/L Carbon Dioxide (22-32) mmol/L BUN (7-17) mg/dL Creatinine (0.52-1.04) mg/dL Estimated GFR (>60) mL/min BUN/Creatinine Ratio (6-22) Glucose (80-110) mg/dL Calcium (8.4-10.2) mg/dL Magnesium (1.6-2.3) mg/dL Total Bilirubin (0.2-1.3) mg/dL AST (14-36) IU/L ALT (<35) IU/L Alkaline Phosphatase (38-126) U/L Total Creatine Kinase (30-135) U/L CK-MB (CK-2) CK-MB (CK-2) Rel Index Troponin I < 0.012 (0.01-0.034) ng/mL Total Protein (6.3-8.2) g/dL Albumin (3.5-5.0) g/dL Globulin (1.7-4.1) g/dL Albumin/Globulin Ratio (1.0-2.8) Lipase (23-300) U/L Imaging Data Chest x-ray: Radiologist's Impression: Halle Brown??65??F??1955 ? Allergy/Adv: acetaminophen, citalopram, gabapentin, oxycodone (More??) Close Chest X-Ray (Signed) Myles Stern - 08/10/21 Injection for MRI Arthrogram (Signed) Mushtaq Galeas - 12/06/20 Hip MRI (Signed) Mushtaq Galeas - 12/06/20 Lumbar Spine MRI (Signed) Luis AlbertoJaycob - 11/24/20 Radiology - Historical 02/04/20 Lumbar Spine X-Ray (Signed) Angel Giron - 10/28/18 Lumbar Spine MRI (Signed) Jey Altamirano - 10/28/18 Hip X-Ray (Signed) Angel Giron - 10/28/18 Hip MRI (Signed) Angel Giron - 10/28/18 Hip MRI (Signed) [place] - 10/22/17 [place] [address] XRay Report Signed Patient: Halle Brown MR#: [id number] : 1955 Acct:[id number] Age/Sex: 65 / F Date of Service: 08/10/21 Loc: ED Accession Number: [id number] ?? Procedure: XR chest 1V Ordering Provider: Elen Win D.O. PROCEDURE:? XR CHEST 1V ? INDICATIONS:? chest pain ? TECHNIQUE:? One view of the chest was acquired.? ? COMPARISON:? None. ? FINDINGS:? ? Surgical changes and devices:? Surgical clips noted in both breasts and both axilla. ? Lungs and pleura:? Lungs are clear.? No pleural effusions or pneumothorax.? ? Mediastinum:? Mediastinal contours appear normal.? Heart size is normal.? ? Bones and chest wall:? No suspicious bony lesions.? Overlying soft tissues appear unremarkable.? ? IMPRESSION:? No acute cardiopulmonary findings ? ? ? Approved by: Myles Stern M.D. on 08/10/2021 at 17:12? ECG Data Attestation: I personally reviewed and interpreted this ECG as follows: Interpretation: Sinus rhythm with occasional PVCs. Rate of 77 IL 152 QRS 86 and QTC 420. No acute ST elevation or depression appreciated. EKG 2. Sinus rhythm with occasional PAC. Rate of 70 2p are 162 QRS is 76 QTC 442. Patient does not appear to have dynamic changes with only change appreciated in lead 3 some T-wave inversion that was not appreciated. MDM Narrative Medical decision making narrative: This is a 65-year-old female who comes in with chest pressure after doing a treadmill stress test and developing chest pressure and some mild ST depression per cardiology. Patient did not have resolution of her chest pressure with 3 nitro and was brought to the emergency department. It was noted she had hypertensive response spiking up to the 200 range during her stress testing. Patient does have some anemia which is improved, she did receive iron infusion recently, renal function electrolytes and initial troponin are negative. Cardiology recommends based on intermediate risk to give nitro paste which had resolved patient's chest pressure here in the department. She received 324 mg aspirin as she not take any aspirin today. Plan for 2nd troponin repeat EKG if still negative, Dr. Estevez would like to keep the patient here for observation and new command stress testing tomorrow. You would recommend starting amlodipine 5 mg and stopping nitro paste when this was performed. If positive troponin or if hospitalist is reluctant to keep patient he asks that we recontact. <Paulette Canela MD - Last Filed: 08/11/21 03:39> Lab Data Labs: Lab Results 08/10/21 08/10/21 08/10/21 Range/Units 17:20 17:20 17:20 WBC 6.2 (4.5-11.0) X10^3/uL RBC 4.13 (4.0-5.2) X10^6/uL Hgb 11.2 L (12.0-16.0) g/dL Hct 33.2 L (36-46) % MCV 80.3 (80-100) fL MCH 27.1 (26-34) PG MCHC 33.8 (30-36) % RDW 14.0 (11.6-14.8) % Plt Count 247 (150-400) X10^3/uL Neut % (Auto) 54.1 (50-75) % Lymph % (Auto) 26.4 (25-40) % [place] % (Auto) 13.1 (3-14) % Eos % (Auto) 5.6 H (2-4) % Baso % (Auto) 0.8 (0-2) % Neut # (Auto) 3400 (3255-0868) /uL Lymph # (Auto) 1600 (7628-4973) /uL [place] # (Auto) 800 (0-900) /uL Eos # (Auto) 300 (0-450) /uL Baso # (Auto) 100 (0-100) /uL PT 10.9 (10.1-12.7) SECONDS INR 1.0 (0.9-1.3) APTT 31 (26.4-36.2) SECONDS Sodium 136 L (137-145) mmol/L Potassium 4.0 (3.4-5.1) mmol/L Chloride 102 (98-107) mmol/L Carbon Dioxide 28 (22-32) mmol/L BUN 21 H (7-17) mg/dL Creatinine 0.89 (0.52-1.04) mg/dL Estimated GFR > 60 (>60) mL/min BUN/Creatinine Ratio 23.6 H (6-22) Glucose 93 (80-110) mg/dL Calcium 9.3 (8.4-10.2) mg/dL Magnesium 2.3 (1.6-2.3) mg/dL Total Bilirubin 0.3 (0.2-1.3) mg/dL AST 38 H (14-36) IU/L ALT 17 (<35) IU/L Alkaline Phosphatase 66 (38-126) U/L Total Creatine Kinase 91 (30-135) U/L CK-MB (CK-2) TNP CK-MB (CK-2) Rel Index TNP Troponin I < 0.012 (0.01-0.034) ng/mL Total Protein 7.7 (6.3-8.2) g/dL Albumin 4.5 (3.5-5.0) g/dL Globulin 3.2 (1.7-4.1) g/dL Albumin/Globulin Ratio 1.4 (1.0-2.8) Lipase 88 (23-300) U/L / Range/Units 19:52 WBC (4.5-11.0) X10^3/uL RBC (4.0-5.2) X10^6/uL Hgb (12.0-16.0) g/dL Hct (36-46) % MCV (80-100) fL MCH (26-34) PG MCHC (30-36) % RDW (11.6-14.8) % Plt Count (150-400) X10^3/uL Neut % (Auto) (50-75) % Lymph % (Auto) (25-40) % [place] % (Auto) (3-14) % Eos % (Auto) (2-4) % Baso % (Auto) (0-2) % Neut # (Auto) (2989-0688) /uL Lymph # (Auto) (1286-6345) /uL [place] # (Auto) (0-900) /uL Eos # (Auto) (0-450) /uL Baso # (Auto) (0-100) /uL PT (10.1-12.7) SECONDS INR (0.9-1.3) APTT (26.4-36.2) SECONDS Sodium (137-145) mmol/L Potassium (3.4-5.1) mmol/L Chloride (98-107) mmol/L Carbon Dioxide (22-32) mmol/L BUN (7-17) mg/dL Creatinine (0.52-1.04) mg/dL Estimated GFR (>60) mL/min BUN/Creatinine Ratio (6-22) Glucose (80-110) mg/dL Calcium (8.4-10.2) mg/dL Magnesium (1.6-2.3) mg/dL Total Bilirubin (0.2-1.3) mg/dL AST (14-36) IU/L ALT (<35) IU/L Alkaline Phosphatase (38-126) U/L Total Creatine Kinase (30-135) U/L CK-MB (CK-2) CK-MB (CK-2) Rel Index Troponin I < 0.012 (0.01-0.034) ng/mL Total Protein (6.3-8.2) g/dL Albumin (3.5-5.0) g/dL Globulin (1.7-4.1) g/dL Albumin/Globulin Ratio (1.0-2.8) Lipase (23-300) U/L MDM Narrative Medical decision making narrative: This is a 65-year-old female who comes in with chest pressure after doing a treadmill stress test and developing chest pressure and some mild ST depression per cardiology. Patient did not have resolution of her chest pressure with 3 nitro and was brought to the emergency department. It was noted she had hypertensive response spiking up to the 200 range during her stress testing. Patient does have some anemia which is improved, she did receive iron infusion recently, renal function electrolytes and initial troponin are negative. Cardiology recommends based on intermediate risk to give nitro paste which had resolved patient's chest pressure here in the department. She received 324 mg aspirin as she not take any aspirin today. Plan for 2nd troponin repeat EKG if still negative, Dr. Estevez would like to keep the patient here for observation and new command stress testing tomorrow. You would recommend starting amlodipine 5 mg and stopping nitro paste when this was performed. If positive troponin or if hospitalist is reluctant to keep patient he asks that we recontact. Care is assumed from Dr. Win 10pm repeat troponin is negative. Will follow recommendations from pin feather machine operator, Dr. Estevez. findings reviewed with patient. Nitropaste will be removed, amlodipine as ordered. Will review care with Dr. Frederick. Patient is chest pain free. She does note that she has constant continuous chest tightness that is discrete and different from the squeezing type pain she gets with exertion. Discharge Plan Departure Patient Disposition: Admitted as Observation Clinical Impression: Stable angina, Exertional dyspnea Admit Date/Time: 08/10/21 23:10 Admit Provider: Zeyad Frederick
[2021-08-10 17:34] LABS: Add Manual Diff / Slide Review NO; Basophils Absolute Auto 100 /uL (0-100); Basophils Percent Auto 0.8 % (0-2); Eosinophils Absolute Auto 300 /uL (0-450); Eosinophils Percent Auto 5.6 % (2-4); Hematocrit 33.2 % (36-46); Hemoglobin 11.2 g/dL (12.0-16.0); Lymphocytes Absolute Auto 1600 /uL (1100-4500); Lymphocytes Percent Auto 26.4 % (25-40); Mean Corpuscular HGB Conc 33.8 % (30-36); Mean Corpuscular Hemoglobin 27.1 PG (26-34); Mean Corpuscular Volume 80.3 fL (80-100); Monocytes Absolute Auto 800 /uL (0-900); Monocytes Percent Auto 13.1 % (3-14); Neutrophils Absolute Auto 3400 /uL (1500-7000); Neutrophils Percent Auto 54.1 % (50-75); Platelet Count 247 X10^3/uL (150-400); Red Blood Cell Count 4.13 X10^6/uL (4.0-5.2); White Blood Cell Count 6.2 X10^3/uL (4.5-11.0)
[2021-08-10 17:43] LABS: Prothrombin Time 10.9 SECONDS (10.1-12.7)
[2021-08-10 17:45] LABS: PTT Partial Thromboplastin Tim 31 SECONDS (26.4-36.2)
[2021-08-10 17:49] LABS: Alanine Aminotransferase 17 IU/L (<35); Albumin 4.5 g/dL (3.5-5.0); Albumin Globulin Ratio 1.4 (1.0-2.8); Alkaline Phosphatase 66 U/L (38-126); Aspartate Aminotransferase 38 IU/L (14-36); BUN Creatinine Ratio 23.6 (6-22); Bilirubin Total 0.3 mg/dL (0.2-1.3); Blood Urea Nitrogen 21 mg/dL (7-17); Calcium 9.3 mg/dL (8.4-10.2); Carbon Dioxide 28 mmol/L (22-32); Chloride 102 mmol/L (98-107); Creatine Kinase 91 U/L (30-135); Estimated Glomerular Filt Rate > 60 mL/min (>60); Globulin 3.2 g/dL (1.7-4.1); Glucose 93 mg/dL (80-110); HEMOLYSIS < 15 (0-50); Lipase 88 U/L (23-300); Magnesium 2.3 mg/dL (1.6-2.3); Sodium 136 mmol/L (137-145); Total Protein 7.7 g/dL (6.3-8.2)
[2021-08-10] MEDS: NITROGLYCERIN OINT 1 INCH/GM OINT...G. 0.5 INCH TOP (17:52)
[2021-08-10] MEDS: SODIUM CHLORIDE 0.9% 1,000 ML 150 ML IV (17:54)
[2021-08-10] MEDS: ASPIRIN 81 MG CHEW TAB 324 MG PO (17:54)
[2021-08-10 18:01] LABS: Troponin I < 0.012 ng/mL (0.01-0.034)
[2021-08-10 21:44] LABS: Troponin I < 0.012 ng/mL (0.01-0.034)
[2021-08-10] MEDS: AMLODIPINE 5 MG TABLET PO (22:43)
--- NOTE | 2021-08-10 23:18 | PM.HP.1 ---
History of Present Illness History of Present Illness Date Patient Seen: 08/10/21 Time Patient Seen: 23:19 Chief complaint: Chest pain Narrative: This is a 65-year-old female with a strong family history of coronary artery disease, a recent history of very high PVC/Pac burden and unclear valvular heart disease who presents after an abnormal ETT today. She lives in [place] so was sent over for a treadmill stress test because of ongoing exertional dyspnea with a squeezing chest pain that has been coming and going since April. She says that she walked for 8 minutes on the treadmill before her dyspnea became to great to continue walking. She was sent to the emergency department from the treadmill test due to the chest pain with a squeezing sensation. She has received 6 nitroglycerin and the symptoms have subsided. Her troponin has been negative and her EKG, other than the very frequent PVC/Pac pattern has shown no acute ST or T-wave changes. Her family history includes valvular heart disease in her father, coronary disease in her brother and an NH in her mother. She is not a smoker. She does not have diabetes mellitus, hypertension or known hyperlipidemia. She did a recent heart monitor with diagnosis of moderate PVC burden including sustained bigeminy and trigeminy as well as rare atrial ectopy and PSVT. She did a recent echocardiogram on June 22 showing mild left ventricular hypertrophy with normal LV function and EF 60% along with mild mitral regurgitation. These were done at [facility] in [place]. Per discussions with Cardiology she will be ruled out with serial troponins and will undergo a treadmill nuclear medicine cardiac scan before discharge home. Patient History Medical History (Updated 08/11/21 @ 01:37 by Zeyad Frederick MD) No pertinent past medical history Surgical History (Updated 08/11/21 @ 01:37 by Zeyad Frederick MD) History of hip replacement History of tonsillectomy Family & Social History Family History (Updated 08/11/21 @ 01:38 by Zeyad Frederick MD) Father Valvular heart disease Mother Myocardial infarct Brother CAD (coronary artery disease) Safety & Behavioral: Feels Safe in Current Yes Environment Been Physically Hurt or No Threatened By a Person Tobacco & Substance use: Smoking Status Never smoker alcohol intake frequency holiday/special occasion Substance Use Type does not use Comment: Her backup decision maker is Naif Leonard. Meds Home Medications and Allergies Allergies Allergy/AdvReac Type Severity Reaction Status Date / Time acetaminophen [From Percocet] Allergy Verified 08/10/21 17:26 citalopram Allergy Verified 08/10/21 17:26 gabapentin Allergy Verified 08/10/21 17:26 oxycodone [From Percocet] Allergy Verified 08/10/21 17:26 Review of Systems Review of Systems Narrative: Negative for fevers, chills, sweats, nausea, vomiting, abdominal pain, coughing, seizures, bleeding, rash, new allergies Positive for shortness of breath and squeezing chest pain Exam Vital Signs (past 8 hours): - 08/10/21 17:20 08/10/21 17:21 08/10/21 17:26 Temperature 98.3 F Pulse Rate 81 81 79 Respiratory Rate 15 Blood Pressure 162/85 H 162/85 H Pulse Oximetry 98 97 97 08/10/21 17:30 08/10/21 17:52 08/10/21 17:53 Temperature Pulse Rate 79 71 73 Respiratory Rate 23 19 Blood Pressure 155/75 H 138/66 138/66 Pulse Oximetry 99 98 08/10/21 18:00 08/10/21 18:30 08/10/21 19:00 Temperature Pulse Rate 71 74 72 Respiratory Rate 20 20 20 Blood Pressure 149/75 H 149/72 H Pulse Oximetry 99 98 99 08/10/21 19:30 08/10/21 20:00 Temperature Pulse Rate 69 72 Respiratory Rate 25 H 19 Blood Pressure 135/64 138/66 Pulse Oximetry 98 96 Oxygen Delivery Method Room Air Narrative Exam Narrative: She is alert and oriented x3, no apparent distress Pupils are equally round reactive to light and accommodation Sclerae are pink and nonicteric Extraocular muscles are intact There is no thyromegaly JVD is less than 6 cm No lymph nodes are felt head, neck, supraclavicular area Heart is regular rate and rhythm with a 2/6 holosystolic murmur and very frequent premature beats Lungs are clear to auscultation bilaterally Abdomen is soft, bowel sounds positive, nontender, no organomegaly Extremities have no ankle edema Skin has no rash or jaundice Motor function is 5/5 throughout, there is no tremor and cranial nerves 2-12 test intact Objective Labs Result Diagrams: 08/10/21 17:20 08/10/21 17:20 Labs: Laboratory Results - last 24 hr 08/10/21 08/10/21 08/10/21 17:20 17:20 17:20 WBC 6.2 RBC 4.13 Hgb 11.2 L Hct 33.2 L MCV 80.3 MCH 27.1 MCHC 33.8 RDW 14.0 Plt Count 247 Neut % (Auto) 54.1 Lymph % (Auto) 26.4 Mccormick % (Auto) 13.1 Eos % (Auto) 5.6 H Baso % (Auto) 0.8 Neut # (Auto) 3400 Lymph # (Auto) 1600 Mccormick # (Auto) 800 Eos # (Auto) 300 Baso # (Auto) 100 PT 10.9 INR 1.0 APTT 31 Sodium 136 L Potassium 4.0 Chloride 102 Carbon Dioxide 28 BUN 21 H Creatinine 0.89 Estimated GFR > 60 BUN/Creatinine Ratio 23.6 H Glucose 93 Calcium 9.3 Magnesium 2.3 Total Bilirubin 0.3 AST 38 H ALT 17 Alkaline Phosphatase 66 Total Creatine Kinase 91 CK-MB (CK-2) TNP CK-MB (CK-2) Rel Index TNP Troponin I < 0.012 Total Protein 7.7 Albumin 4.5 Globulin 3.2 Albumin/Globulin Ratio 1.4 Lipase 88 08/10/21 19:52 WBC RBC Hgb Hct MCV MCH MCHC RDW Plt Count Neut % (Auto) Lymph % (Auto) Mccormick % (Auto) Eos % (Auto) Baso % (Auto) Neut # (Auto) Lymph # (Auto) Mccormick # (Auto) Eos # (Auto) Baso # (Auto) PT INR APTT Sodium Potassium Chloride Carbon Dioxide BUN Creatinine Estimated GFR BUN/Creatinine Ratio Glucose Calcium Magnesium Total Bilirubin AST ALT Alkaline Phosphatase Total Creatine Kinase CK-MB (CK-2) CK-MB (CK-2) Rel Index Troponin I < 0.012 Total Protein Albumin Globulin Albumin/Globulin Ratio Lipase Assessment & Plan Assessment & Plan narrative: This is a 65-year-old female with a strong family history of coronary artery disease, a recent history of very high PVC/Pac burden and unclear valvular heart disease who presents after an abnormal ETT today. She lives in [place] so was sent over for a treadmill stress test because of ongoing exertional dyspnea with a squeezing chest pain that has been coming and going since April. Chest pain, present on admission. Active. -reportedly had abnormal ST segment depression on ETT tracing today -reportedly had squeezing chest pain and exertional dyspnea with ETT today. -troponin and EKGs in the ED without signs of acute NH -follow serial troponins and per discussion with Dr. Estevez, Cardiology, will arrange ETT with nuclear medicine scan tomorrow. -nitroglycerin as needed and amlodipine 5 mg daily -strong family history of coronary disease -heart murmur present without evidence of aortic stenosis on recent echocardiogram -Heavy PVC burden noted on prior ZIO patch and on telemetry today Backup decision maker is her partner Naif Leonard. SCDs for DVT prevention. Time Spent With Patient Critical Care time: I spent a total of [] minutes of critical care time on this patient's care today; this time is exclusive of procedural time.
[2021-08-11] VITALS: BP 146/73; PULSE 71; RESP 17; O2SAT 96
[2021-08-11 00:10] VITALS: BP 140/73; PULSE 67; RESP 16; TEMP 36.1; O2SAT 99
[2021-08-11 00:41] VITALS: BMI 25.9
[2021-08-11] MEDS: DEXTROSE 5%-0.9% NS 1,000 ML 100 ML IV (01:19)
[2021-08-11] MEDS: ACETAMINOPHEN 325 MG TABLET 650 MG PO (01:26)
[2021-08-11 05:10] VITALS: BP 136/58; PULSE 64; RESP 17; TEMP 36; O2SAT 98
[2021-08-11 05:17] LABS: Add Manual Diff / Slide Review NO; Basophils Absolute Auto 100 /uL (0-100); Eosinophils Absolute Auto 400 /uL (0-450); Eosinophils Percent Auto 7.1 % (2-4); Hematocrit 32.4 % (36-46); Lymphocytes Absolute Auto 1800 /uL (1100-4500); Lymphocytes Percent Auto 30.1 % (25-40); Mean Corpuscular Hemoglobin 27.1 PG (26-34); Mean Corpuscular Volume 79.7 fL (80-100); Monocytes Absolute Auto 800 /uL (0-900); Neutrophils Absolute Auto 2800 /uL (1500-7000); Neutrophils Percent Auto 47.8 % (50-75); Platelet Count 237 X10^3/uL (150-400); Red Blood Cell Count 4.07 X10^6/uL (4.0-5.2); Red Cell Distribution Width 14.3 % (11.6-14.8); White Blood Cell Count 5.8 X10^3/uL (4.5-11.0)
[2021-08-11 05:42] LABS: BUN Creatinine Ratio 16.9 (6-22); Blood Urea Nitrogen 13 mg/dL (7-17); Calcium 8.9 mg/dL (8.4-10.2); Carbon Dioxide 24 mmol/L (22-32); Chloride 110 mmol/L (98-107); Estimated Glomerular Filt Rate > 60 mL/min (>60); Glucose 116 mg/dL (80-110); HEMOLYSIS < 15 (0-50); Potassium 3.7 mmol/L (3.4-5.1); Sodium 141 mmol/L (137-145)
[2021-08-11 05:54] LABS: Troponin I < 0.012 ng/mL (0.01-0.034)
[2021-08-11 08:15] VITALS: BP 155/66; PULSE 66; RESP 16; TEMP 36.6; O2SAT 99
[2021-08-11 14:40] VITALS: BP 148/84; PULSE 76; RESP 16; TEMP 36.5; O2SAT 100
--- NOTE | 2021-08-11 16:42 | PM.DS.1 ---
History of Present Illness History of Present Illness Date Patient Seen: 08/11/21 Chief complaint: Chest pain Narrative: History of Present Illness Date Patient Seen: 08/10/21 Time Patient Seen: 23:19 Chief complaint: Chest pain Narrative: This is a 65-year-old female with a strong family history of coronary artery disease, a recent history of very high PVC/Pac burden and unclear valvular heart disease who presents after an abnormal ETT today.? She lives in [place] so was sent over for a treadmill stress test because of ongoing exertional dyspnea with a squeezing chest pain that has been coming and going since April.? She says that she walked for 8 minutes on the treadmill before her dyspnea became to great to continue walking.? She was sent to the emergency department from the treadmill test due to the chest pain with a squeezing sensation.? She has received 6 nitroglycerin and the symptoms have subsided.? Her troponin has been negative and her EKG, other than the very frequent PVC/Pac pattern has shown no acute ST or T-wave changes.? Her family history includes valvular heart disease in her father, coronary disease in her brother and an [place] in her mother.? She is not a smoker.? She does not have diabetes mellitus, hypertension or known hyperlipidemia.? She did a recent heart monitor with diagnosis of moderate PVC burden including sustained? bigeminy and trigeminy as well as rare atrial ectopy and PSVT.? She did a recent echocardiogram on June 22 showing mild left ventricular hypertrophy with normal LV function and EF 60% along with mild mitral regurgitation.? These were done at [facility] in [place].? Per discussions with Cardiology she will be ruled out with serial troponins and will undergo a treadmill nuclear medicine cardiac scan before discharge home. Discharge Providers Provider Date of admission: 08/10/21 23:10 Discharge Date: 08/11/21 Primary care physician: CLARK Du Consults: N/A Discharge provider: Nelly Fletcher DO Summary Hospital Course Discharge Diagnosis: CHEST PRESSURE; ABNORMAL EXERCISE STRESS TEST HOWEVER UNREMARKABLE CHEMICAL STRESS TEST POSS HTN; ? ESSENTIAL ? ELEVATED LIVER ENZYMES; UNLCEAR CAUSE Hospital Course: THIS IS A VERY PLEASANT 65-YEAR-OLD FEMALE WHO REPORTS THAT SHE WALKS ALMOST DAILY FOR ABOUT 3 MILES WITHOUT SIGNIFICANT ISSUES UNLESS SHE IS GOING UPHILL OR UP STEPS. SHE REPORTEDLY WAS HAVING A STRESS TEST DONE YESTERDAY AND BECAME SYMPTOMATIC WITH CHEST PAIN AND SHORTNESS OF BREATH REPORTED. SHE WAS ADMITTED FOR A CHEMICAL STRESS TEST WHICH WAS DONE TODAY AND WAS UNREMARKABLE PER CARDIOLOGY. SHE HAS BEEN ASYMPTOMATIC SINCE ADMISSION. THE EXACT ETIOLOGY OF HER SYMPTOMS IS UNCLEAR. COULD BE MULTIFACTORIAL. HOWEVER CARDIAC ETIOLOGY SEEMS TO BE UNLIKELY. IN ANY CASE, PATIENT HAD A RECENT ECHOCARDIOGRAM WHICH FAILED TO SHOW SIGNIFICANT VALVULOPATHY. MITRAL VALVE ONLY HAD MILD REGURGITATION. WILL DEFER ADDITIONAL WORKUP TO OUTPATIENT PROVIDERS SUCH A TILE AND MARBLE SETTER. Status at Discharge Cognitive/behavioral status at discharge: oriented Functional status at discharge: independent ambulation Overall status at discharge: patient is back to baseline Time Spent with Patient Time spent: Greater than 30 minutes Exam Vital Signs (past 8 hours): - 08/11/21 14:40 Temperature 97.7 F Pulse Rate 76 Respiratory Rate 16 Blood Pressure 148/84 H Pulse Oximetry 100 Oxygen Delivery Method Room Air Oxygen Flow Rate 0 Narrative Exam Narrative: NO ACUTE DISTRESS. PATIENT IS ALERT ORIENTED X3. VITAL SIGNS STABLE HEAD ATRAUMATIC NORMOCEPHALIC NECK : SUPPLE WITHOUT ADENOPATHY NO CAROTID BRUITS EYE: EOMI, PERRLA, NORMAL CONJUNCTIVA; NO JAUNDICE CHEST: REGULAR RATE. NO RUBS. PMI IS NON DISPLACED. NO MURMURS; NORMAL S1-S2 PULMONARY: DECREASED BS OVER THE BASES. MILD BIBASILAR CRACKLES NOTED; NO INCREASED DULLNESS TO PERCUSSION ABDOMEN: SOFT. NONTENDER. NONDISTENDED. BOWEL SOUNDS ARE PRESENT IN ALL 4 QUADRANTS. NO MASS. EXTREMITIES: NO EDEMA.. NO CYANOSIS CLUBBING NOTED. NEURO: CRANIAL NERVES 2-12 GROSSLY INTACT. NO FOCAL NEUROLOGICAL DEFICIT NOTED. MSK: NORMAL RANGE OF MOTION FOR AGE. NO JOINT EFFUSION. SKIN: NORMAL FOR ETHNICITY; NO ECCHYMOSIS. NO LESION. GOOD TURGOR.; NO RASHES : NORMAL EXTERNAL GENITALIA. PSYCH : APPROPRIATE MOOD AND AFFECT. ALERT AWAKE ORIENTED X3 Objective Labs Result Diagrams: 08/11/21 05:00 08/11/21 05:00 Labs: Laboratory Results - last 24 hr 08/10/21 08/10/21 08/10/21 17:20 17:20 17:20 WBC 6.2 RBC 4.13 Hgb 11.2 L Hct 33.2 L MCV 80.3 MCH 27.1 MCHC 33.8 RDW 14.0 Plt Count 247 Neut % (Auto) 54.1 Lymph % (Auto) 26.4 Mcminn % (Auto) 13.1 Eos % (Auto) 5.6 H Baso % (Auto) 0.8 Neut # (Auto) 3400 Lymph # (Auto) 1600 Mcminn # (Auto) 800 Eos # (Auto) 300 Baso # (Auto) 100 PT 10.9 INR 1.0 APTT 31 Sodium 136 L Potassium 4.0 Chloride 102 Carbon Dioxide 28 BUN 21 H Creatinine 0.89 Estimated GFR > 60 BUN/Creatinine Ratio 23.6 H Glucose 93 Calcium 9.3 Magnesium 2.3 Total Bilirubin 0.3 AST 38 H ALT 17 Alkaline Phosphatase 66 Total Creatine Kinase 91 CK-MB (CK-2) TNP CK-MB (CK-2) Rel Index TNP Troponin I < 0.012 Total Protein 7.7 Albumin 4.5 Globulin 3.2 Albumin/Globulin Ratio 1.4 Lipase 88 08/10/21 08/11/21 08/11/21 19:52 05:00 05:00 WBC 5.8 RBC 4.07 Hgb 11.0 L Hct 32.4 L MCV 79.7 L MCH 27.1 MCHC 34.0 RDW 14.3 Plt Count 237 Neut % (Auto) 47.8 L Lymph % (Auto) 30.1 Mcminn % (Auto) 14.0 Eos % (Auto) 7.1 H Baso % (Auto) 1.0 Neut # (Auto) 2800 Lymph # (Auto) 1800 Mcminn # (Auto) 800 Eos # (Auto) 400 Baso # (Auto) 100 PT INR APTT Sodium 141 Potassium 3.7 Chloride 110 H Carbon Dioxide 24 BUN 13 Creatinine 0.77 Estimated GFR > 60 BUN/Creatinine Ratio 16.9 Glucose 116 H Calcium 8.9 Magnesium Total Bilirubin AST ALT Alkaline Phosphatase Total Creatine Kinase CK-MB (CK-2) CK-MB (CK-2) Rel Index Troponin I < 0.012 < 0.012 Total Protein Albumin Globulin Albumin/Globulin Ratio Lipase PFSH Medical History (Updated 08/11/21 @ 01:37 by Zeyad Frederick MD) No pertinent past medical history Surgical History (Updated 08/11/21 @ 01:37 by Zeyad Frederick MD) History of hip replacement History of tonsillectomy Family History (Updated 08/11/21 @ 01:38 by Zeyad Frederick MD) Father Valvular heart disease Mother Myocardial infarct Brother CAD (coronary artery disease) Social History household members: significant other Smoking Status: Never smoker Discharge Plan Discharge Plan Patient Disposition: Home Discharge orders & Medications Prescriptions: Continued aspirin 81 mg Tablet,Chewable 81 mg PO DAILY 0RF Follow up/Referrals: Kita Ramirez, CLARK [Primary Care Provider] - Diet/Activity/Treatments Diet: Low-fat and Low-cholesterol Activity: TOLERATED Visit Report/Discharge Packet Instructions: DI for Chest Pain Discharge Data Primary Care Provider: Kita Ramirez Attending Provider: Zeyad Frederick
--- NOTE | 2021-08-11 19:01 | DI.NM.S_ITS ---
DATE OF SERVICE: 08/11/2021 PROCEDURE PERFORMED: Pharmacologic vasodilator stress and rest myocardial perfusion imaging with gating to assess ejection fraction and regional wall motion. ORDERING PROVIDER: Dr. Jose Alberto Frederick. INDICATIONS: The patient is a 65-year-old female with a history of exertional dyspnea and chest discomfort, who had a standard treadmill study yesterday with some chest discomfort and dyspnea with some nonspecific ST-segment depression. She was evaluated in the emergency department with a negative evaluation and is now undergoing perfusion imaging for a higher diagnostic accuracy study. CARDIAC STRESS: Per protocol, she was infused with 0.4 mg of regadenoson with a normal hemodynamic response. She denied any chest discomfort or other anginal symptoms except for some minimal dyspnea and lightheadedness. Her resting ECG is normal with occasional PVCs. With stress, there are no significant ST shifts. She continued to have occasional PVCs but no complex ventricular ectopy. Per protocol, she was injected with 24.8 millicuries of technetium-99m Myoview and was imaged 15 minutes later using a gated SPECT acquisition protocol. Earlier in the day while at rest, she had been injected with 11.3 millicuries of technetium-99m Myoview and was imaged 20 minutes later, again using a gated SPECT acquisition protocol. FINDINGS: 1. Raw data: There is fairly good myocardial tracer uptake with moderate breast shadows that produce some attenuation artifact. The lung/heart ratio is normal at 0.37 with a normal TID ratio of 1.05. 2. Quantitated gated SPECT: Post-stress ejection fraction is estimated at 83% without any focal wall motion abnormality. Resting ejection fraction is estimated at 68 percent, although image quality is quite poor. Resting end-diastolic volume is 95 mL. 3. Myocardial perfusion imaging: Post-stress supine images shows a fairly normal myocardial perfusion pattern with a slight defect in the distal anteroseptum consistent with breast attenuation artifact, supported by its complete resolution on the prone images, revealing a normal, homogeneous perfusion pattern. The resting images show an identical perfusion pattern without any areas of improvement. IMPRESSION: 1. Normal myocardial perfusion study. 2. Mild breast attenuation artifact but no evidence for myocardial ischemia or myocardial infarction. 3. Normal left ventricular systolic function without any focal wall motion abnormality. 4. No angina or ECG evidence of ischemia with pharmacologicvasodilator stress augmented by low-level walking. Kenny Brownie - RS/fn/lc doc#: [id number]/job#: [id number] dd: 08/11/2021 16:32:00 dt: 08/11/2021 18:06:00 DICTATING MD/COPIES TO: Derek Stephens MD; Zeyad Frederick MD COPIES MNE: YANNA;
--- NOTE | 2021-08-12 08:11 | CM.DPNOTE ---
Late Entry Patient is a 65 yo female, resident of [place], presented after becoming symptomatic with chest pain during an outpatient stress test. Admitted for chest pain r/o and chemical stress test which was unremarkable per notes. Attempted assessment yesterday at bedside and patient was sleeping soundly, decided not to wake her. Later learned supportive partner at bedside, w/no concerns or questions re DC reported Plan: Patient was discharged yesterday w/partner with close outpatient f/u recommended, baseline functionally SEEMA Brown
== END 2021-08-11 17:03 | disposition home or self-care (01) ==
LOC: ED 22:04 → AC 23:12
PROVIDERS: Emergency Medicine; Admitting Provider Family Medicine; Emergency Provider Emergency Medicine; Family Provider Family Medicine; PCP Naturopath; Referring Provider Emergency Medicine; Visit Provider Family Medicine
DX: R07.9 Chest pain, unspecified (principal); R06.02 Shortness of breath; Z20.822 Contact with and (suspected) exposure to COVID-19; R94.31 Abnormal electrocardiogram [ECG] [EKG]; R06.00 Dyspnea, unspecified
CPT/HCPCS: 36415; 71045; 78452; 80048; 80053; 82550; 83690; 83735; 84484; 85025; 85610; 85730; 87635; 93005; 93016; 93017; 93018; 99284; G0378; A9502; J2785

== ENCOUNTER → 2021-12-11 12:35 | Outpatient (CLI) | payer MEDICARE, OTHER, SELFPAY ==
--- NOTE | 2021-12-11 | DI.MG.S_ITS ---
BILATERAL DIGITAL SCREENING MAMMOGRAM 3D/2D WITH CAD POST LUMPECTOMY: 12/11/2021 CLINICAL: Routine screening. Bilateral Breast cancer. Family history of breast cancer. Comparison is made to exams dated: 07/28/2020 mammogram - [facility], 12/10/2013 mammogram, and 05/11/2014 [facility]. Both breasts are heterogeneously dense, which may obscure small masses (category c / 51-75% glandular tissue). Current study was also evaluated with a Computer Aided Detection (CAD) system. There are benign post operative findings in both breasts. No significant masses, calcifications, or other findings are seen in either breast. There has been no significant interval change. IMPRESSION: BENIGN There is no mammographic evidence of malignancy. A 1 year screening mammogram is recommended. This exam was interpreted at Station ID: [id number]. NOTE: For mammograms, a report in lay terms will be sent to the patient. Approximately 15% of breast malignancies will not be visualized mammographically. In the management of a palpable breast mass, a negative mammogram must not discourage biopsy of a clinically suspicious lesion. Electronically Signed By: Alejandro Johnson M.D., jr/tammie:12/11/2021 15:13:28 copy to: HUBERT ARGUELLO letter sent: Normal Exam ACR BI-RADS Category 2: Benign Finding(s) [id number]
== END ==
PROVIDERS: Family Provider Family Medicine; PCP Naturopath; Referring Provider Naturopath; Visit Provider Naturopath
DX: Z12.31 Encounter for screening mammogram for malignant neoplasm of breast (principal); Z80.3 Family history of malignant neoplasm of breast; Z85.3 Personal history of malignant neoplasm of breast
CPT/HCPCS: 77063; 77067

== ENCOUNTER → 2022-12-17 09:51 | Outpatient (CLI) | payer MEDICARE, OTHER, SELFPAY ==
--- NOTE | 2022-12-17 | DI.MG.S_ITS ---
BILATERAL DIGITAL SCREENING MAMMOGRAM 3D/2D WITH CAD: 12/17/2022 CLINICAL: Routine screening. Personal history of bilateral breast cancer. Family history of breast cancer. Comparison is made to exams dated: 12/11/2021 mammogram - [facility], 07/28/2020 mammogram - [facility], and 05/11/2014 [facility]. Both breasts are heterogeneously dense, which may obscure small masses (category c / 51-75% glandular tissue). Current study was also evaluated with a Computer Aided Detection (CAD) system. There are benign post operative findings in both breasts. No significant masses, calcifications, or other findings are seen in either breast. IMPRESSION: BENIGN There is no mammographic evidence of malignancy. A 1 year screening mammogram is recommended. This exam was interpreted at Station ID: [id number]. NOTE: For mammograms, a report in lay terms will be sent to the patient. Approximately 15% of breast malignancies will not be visualized mammographically. In the management of a palpable breast mass, a negative mammogram must not discourage biopsy of a clinically suspicious lesion. Electronically Signed By: Fang wesley/tammie:12/17/2022 18:01:48 copy to: HUBERT ARGUELLO letter sent: Normal Exam ACR BI-RADS Category 2: Benign Finding(s) 3342F
== END ==
PROVIDERS: Family Provider Family Medicine; PCP Student in an Organized Health Care Education/Training Program; Referring Provider Student in an Organized Health Care Education/Training Program; Visit Provider Student in an Organized Health Care Education/Training Program
DX: Z12.31 Encounter for screening mammogram for malignant neoplasm of breast (principal); Z85.3 Personal history of malignant neoplasm of breast; Z80.3 Family history of malignant neoplasm of breast
CPT/HCPCS: 77063; 77067

== ENCOUNTER → 2024-02-27 10:15 | Outpatient (CLI) | payer MEDICARE, OTHER, SELFPAY ==
--- NOTE | 2024-02-27 10:16 | DI.MG.S_ITS ---
BILATERAL DIGITAL SCREENING MAMMOGRAM 3D/2D WITH CAD POST LUMPECTOMY: 02/27/2024 CLINICAL: Routine screening. Personal history of Bilateral breast cancer. Family history of breast cancer. Comparison is made to exams dated: 12/17/2022 mammogram, 12/11/2021 mammogram - [facility], and 07/28/2020 mammogram - [facility]. The breasts are heterogeneously dense, which may obscure small masses (category c / 51-75% glandular tissue). Current study was also evaluated with a Computer Aided Detection (CAD) system. There are benign post operative findings in both breasts. No significant masses, calcifications, or other findings are seen in either breast. There has been no significant interval change. IMPRESSION: BENIGN There is no mammographic evidence of malignancy. A 1 year screening mammogram is recommended. This exam was interpreted at Station ID: [id number]. NOTE: For mammograms, a report in lay terms will be sent to the patient. Approximately 15% of breast malignancies will not be visualized mammographically. In the management of a palpable breast mass, a negative mammogram must not discourage biopsy of a clinically suspicious lesion. Electronically Signed By: Fang Acevedo M.D., Ph.D. andrew/tammie:02/29/2024 01:41:14 copy to: HUBERT ARGUELLO letter sent: Normal Exam ACR BI-RADS Category 2: Benign
== END ==
PROVIDERS: Family Provider Family Medicine; PCP Student in an Organized Health Care Education/Training Program; Referring Provider Student in an Organized Health Care Education/Training Program; Visit Provider Student in an Organized Health Care Education/Training Program
DX: Z12.31 Encounter for screening mammogram for malignant neoplasm of breast (principal); Z85.3 Personal history of malignant neoplasm of breast; Z80.3 Family history of malignant neoplasm of breast; R92.333 Mammographic heterogeneous density, bilateral breasts
CPT/HCPCS: 77063; 77067

== ENCOUNTER 2024-08-27 10:45 | Outpatient (RCR) | payer MEDICARE, OTHER, SELFPAY ==
--- NOTE | 2024-06-12 12:15 | PT.OIE ---
Current Diagnoses Presence of left artificial hip joint (06/12/24) Past Medical History (Last Updated 08/11/21 @ 01:37 by Zeyad Frederick MD) No pertinent past medical history Past Surgical History (Last Updated 08/11/21 @ 01:37 by Zeyad Frederick MD) History of hip replacement History of tonsillectomy Visit Care Team Role Provider Type Chavo Sears Primary Care Provider Non-Staff Specialty: Family Practice Address: [address] [place], [place] [address], [address] Email: Arlene Bryant MD Family Provider Non-Staff Specialty: [facility] Practice Address: [address] [place] [address] [place], [address] Email: Misbah Tavarez MD Attending Provider Non-Staff Referring Provider Specialty: Orthopedics Address: [address] [place] [address], [facility] Email: Physical Therapy Initial Evaluation PT-OP-A Visit Information Start: 06/12/24 15:56 Freq: Status: Active Protocol: Document 06/12/24 11:40 DCW (Rec: 06/12/24 16:13 DCW [id number]) Out-Patient Physical Therapy Visit Information Visit Information Visit Type Initial Evaluation Visit Start Time 11:40 Visit Stop Time 12:00 Visit Number 1 Number of MANAGER MECHANICAL MAINTENANCE Visits 0 Evaluation Information Evaluation Date 06/12/24 PT-OP-B Current Condition Start: 06/12/24 15:56 Freq: Status: Active Protocol: Document 06/12/24 11:40 DCW (Rec: 06/12/24 16:13 DC [id number]) Current Condition History of Current Condition Onset Date 04/27/24 Current Complaints L HARLEEN - posterior approach, left hip and leg pain History of Current Condition Pt is a 68 year old female presenting to skilled therapy 1.5 months s/p left posterior HARLEEN. Pt reports her surgery was 04/27/24, she came home , and then the following day , was lying in bed, and with a pillow between her legs, rolled onto her right side ( which they told me I was allowed to do). Pt felt a clunk and shift in her left hip, but I was still on strong pain drugs, so she just went to sleep. Upon waking the next day, she struggled with walking, and felt like she had a leg length discrepancy. Has had imaging, and there is no problem with the hardware. She has seen multiple PTs for her post-op rehab, has been telling them that her SI feels out, but reports they seem to dismiss what she tells them. At her one month follow-up with her surgeon, she brought it up, and he agreed that it was an SI issue. Pt was able to get an appointment with a sports medicine MD two days ago, which helped a lot, but it's starting to pull back out again. Main goal is to get her hips and pelvis more stable, strengthen her core, and eliminate pain at SI. Feels like her actual HARLEEN recovery has gone well. PT-OP-C Subjective Start: 06/12/24 15:56 Freq: Status: Active Protocol: Document 06/12/24 11:40 DCW (Rec: 06/12/24 16:13 DCW [id number]) OP-PT Subjective Patient Comments Patient Comments Things have been terrible since surgery. Patient Questionnaires Lower Extremity Functional Scale LEFS Score 20/80 = 25% LEFS Impairment 60 to 79% Impaired (Score 17- 31) PT-OP-F Manual Assessment Start: 06/12/24 15:56 Freq: Status: Active Protocol: Document 06/12/24 11:40 DCW (Rec: 06/12/24 16:54 DCW [id number]) Manual Assessments Joint Mobility Assessment Joint Mobility Assessment right ASIS elevated/left ASIS depressed PT-OP-M Strength Start: 06/12/24 15:56 Freq: Status: Active Protocol: Document 06/12/24 11:40 DCW (Rec: 06/12/24 16:54 DCW [id number]) Hip Strength Hip Manual Muscle Testing Right Flexion (L2) 4 Good Abduction 3+ Fair+ Adduction 4 Good External Rotation 4+ Good+ Left Flexion (L2) 4- Good- Abduction 3+ Fair+ Adduction 4- Good- External Rotation 4 Good Knee Strength Knee Manual Muscle Testing Right Flexion (S2) 4 Good Extension (L3) 4 Good Left Flexion (S2) 4 Good Extension (L3) 4 Good PT-OP-Q Treatments Start: 06/12/24 15:56 Freq: Status: Active Protocol: Document 06/12/24 11:40 DCW (Rec: 06/12/24 16:13 DCW [id number]) Therapeutic Exercises Supine Exercises Pelvic Realignment Supine Exercise Name Supine adductor ball squeeze, one leg pelvic lift, one leg press/hold Standing Exercises Pallof Press Standing Exercise Name Pallof Press Side bilateral Resistance Lv 3 Manual Therapy Treatment Consent Patient gave verbal consent for manual Yes treatment Other Other Manual Treatments Pelvic MWM - Resisted left extension, right flexion PT-OP-T Assessment and Plan Start: 06/12/24 15:56 Freq: Status: Active Protocol: Document 06/12/24 11:40 DCW (Rec: 06/15/24 10:43 DCW [id number]) Physical Therapy Assessment Rehab Potential Rehabilitation Potential Good Evaluation Complexity Number of Personal Factors/Comorbidities 3 or More Number of Body Systems Impaired 4 or More Clinical Presentation at Evaluation Unstable Impairments Impairments Activity Tolerance,Functional Activities,Functional Mobility ,Gait,Pain,Strength,Tone Goals Two Impairment Pt experiencing difficulty with gait due to pain in SI Room Service Server Goal (LTG) Pt to ambulate one mile without and AD with a WNL gait pattern in order to demonstrate a return to prior functional levels. LTG Duration 09/10/24 One Impairment Pt does not have an appropriate home exercise program Short Term Goal (STG) Pt to be independent and compliant with an appropriate HEP STG Duration 07/13/24 Assessment Summary Assessment Pt presents 1.5 months s/p HARLEEN with signs and symptoms consistent with referring diagnosis, with additional complication of SI dysfunction . Pt presents to clinic with elevated R ASIS/depressed L ASIS. Did respond well to resisted hip flexion/extension , pt felt better walking out of clinic. Pt will likely benefit from skilled therapeutic intervention focusing on hip mobility and strengthening, SI/pelvic stabilization, pain control, gait training, balance challenges, and STM/joint mobilization. Provided with HEP for pelvic realignment exercises. Physical Therapy Plan Frequency and Duration Frequency of Treatment 2x/Week Plan of Care Start Date 06/12/24 Plan of Care End Date 09/10/24 Therapeutic Interventions Therapeutic Interventions Balance Training,Gait Training ,Home Exercise Program,Joint Mobilizations,Manual Therapy, Neuromuscular Re-education, Patient/Caregiver Education, Self-Care/Home Management,Soft Tissue Mobilization, Therapeutic Activities, Therapeutic Exercises Modalities Cold Pack/Ice Massage,Electric Stimulation,Hot Packs, Ultrasound Next Visit Focus/Plan Next Note Type Treatment Note Next Visit Plan Hip strengthening, SI mobilization, gait training
--- NOTE | 2024-06-12 12:15 | PT.OPPOC ---
Physical, Occupational & Speech Therapy At [facility] Current Diagnoses Presence of left artificial hip joint (06/12/24) Visit Care Team Role Provider Type Chavo Sears Primary Care Provider Non-Staff Specialty: Family Practice Address: [address] [place] [address] [place], [address] Email: Arlene Bryant MD Family Provider Non-Staff Specialty: Family Practice Address: [address] [place] [address] [place], [address] Email: Misbah Tavarez MD Attending Provider Non-Staff Referring Provider Specialty: Orthopedics Address: [address] [place] [address], [id number] Email: Plan Of Care PT-OP-B Current Condition Start: 06/12/24 15:56 Freq: Status: Active Protocol: Document 06/12/24 11:40 DCW (Rec: 06/12/24 16:13 DCW [id number]) Current Condition History of Current Condition Onset Date 04/27/24 Current Complaints L HARLEEN - posterior approach, left hip and leg pain History of Current Condition Pt is a 68 year old female presenting to skilled therapy 1.5 months s/p left posterior HARLEEN. Pt reports her surgery was 04/27/24, she came home , and then the following day , was lying in bed, and with a pillow between her legs, rolled onto her right side ( which they told me I was allowed to do). Pt felt a clunk and shift in her left hip, but I was still on strong pain drugs, so she just went to sleep. Upon waking the next day, she struggled with walking, and felt like she had a leg length discrepancy. Has had imaging, and there is no problem with the hardware. She has seen multiple PTs for her post-op rehab, has been telling them that her SI feels out, but reports they seem to dismiss what she tells them. At her one month follow-up with her surgeon, she brought it up, and he agreed that it was an SI issue. Pt was able to get an appointment with a sports medicine MD two days ago, which helped a lot, but it's starting to pull back out again. Main goal is to get her hips and pelvis more stable, strengthen her core, and eliminate pain at SI. Feels like her actual HARLEEN recovery has gone well. PT-OP-T Assessment and Plan Start: 06/12/24 15:56 Freq: Status: Active Protocol: Document 06/12/24 11:40 DCW (Rec: 06/15/24 10:43 DCW [id number]) Physical Therapy Assessment Rehab Potential Rehabilitation Potential Good Evaluation Complexity Number of Personal Factors/Comorbidities 3 or More Number of Body Systems Impaired 4 or More Clinical Presentation at Evaluation Unstable Impairments Impairments Activity Tolerance,Functional Activities,Functional Mobility ,Gait,Pain,Strength,Tone Goals Two Impairment Pt experiencing difficulty with gait due to pain in SI Nuclear Reactor Engineer Goal (LTG) Pt to ambulate one mile without and AD with a WNL gait pattern in order to demonstrate a return to prior functional levels. LTG Duration 09/10/24 One Impairment Pt does not have an appropriate home exercise program Short Term Goal (STG) Pt to be independent and compliant with an appropriate HEP STG Duration 07/13/24 Assessment Summary Assessment Pt presents 1.5 months s/p HARLEEN with signs and symptoms consistent with referring diagnosis, with additional complication of SI dysfunction . Pt presents to clinic with elevated R ASIS/depressed L ASIS. Did respond well to resisted hip flexion/extension , pt felt better walking out of clinic. Pt will likely benefit from skilled therapeutic intervention focusing on hip mobility and strengthening, SI/pelvic stabilization, pain control, gait training, balance challenges, and STM/joint mobilization. Provided with HEP for pelvic realignment exercises. Physical Therapy Plan Frequency and Duration Frequency of Treatment 2x/Week Plan of Care Start Date 06/12/24 Plan of Care End Date 09/10/24 Therapeutic Interventions Therapeutic Interventions Balance Training,Gait Training ,Home Exercise Program,Joint Mobilizations,Manual Therapy, Neuromuscular Re-education, Patient/Caregiver Education, Self-Care/Home Management,Soft Tissue Mobilization, Therapeutic Activities, Therapeutic Exercises Modalities Cold Pack/Ice Massage,Electric Stimulation,Hot Packs, Ultrasound Next Visit Focus/Plan Next Note Type Treatment Note Next Visit Plan Hip strengthening, SI mobilization, gait training Plan of Care Dates Plan of Care Start Date 06/12/24 Plan of Care End Date 09/10/24 Electronically Signed by: Boni Salomon, PT 06/15/24 1044 If you are in agreement with this Plan of Care, please return a signed and dated copy. I have reviewed this Plan of Care and certify that the skilled therapy services above are required to meet the patient?s needs. Physician Signature Date Printed Name and Credentials Clinical Instructor Signature Printed Name and Credentials
--- NOTE | 2024-06-18 11:35 | PT.OTN ---
Current Diagnoses Presence of left artificial hip joint (06/18/24) Physical Therapy Treatment Note PT-OP-A Visit Information Start: 06/12/24 15:56 Freq: Status: Active Protocol: Document 06/18/24 10:49 SP (Rec: 06/18/24 11:39 SP [id number]) Out-Patient Physical Therapy Visit Information Visit Information Visit Type Treatment Note Visit Start Time 10:49 Visit Stop Time 11:35 Visit Number 2 Number of DIRECTOR INBOUND SALES Visits 1 Evaluation Information Evaluation Date 06/12/24 PT-OP-B Current Condition Start: 06/12/24 15:56 Freq: Status: Active Protocol: Document 06/12/24 11:40 DCW (Rec: 06/12/24 16:13 DCW [id number]) Current Condition History of Current Condition Onset Date 04/27/24 Current Complaints L HARLEEN - posterior approach, left hip and leg pain History of Current Condition Pt is a 68 year old female presenting to skilled therapy 1.5 months s/p left posterior HARLEEN. Pt reports her surgery was 04/27/24, she came home , and then the following day , was lying in bed, and with a pillow between her legs, rolled onto her right side ( which they told me I was allowed to do). Pt felt a clunk and shift in her left hip, but I was still on strong pain drugs, so she just went to sleep. Upon waking the next day, she struggled with walking, and felt like she had a leg length discrepancy. Has had imaging, and there is no problem with the hardware. She has seen multiple PTs for her post-op rehab, has been telling them that her SI feels out, but reports they seem to dismiss what she tells them. At her one month follow-up with her surgeon, she brought it up, and he agreed that it was an SI issue. Pt was able to get an appointment with a sports medicine MD two days ago, which helped a lot, but it's starting to pull back out again. Main goal is to get her hips and pelvis more stable, strengthen her core, and eliminate pain at SI. Feels like her actual HARLEEN recovery has gone well. PT-OP-C Subjective Start: 06/12/24 15:56 Freq: Status: Active Protocol: Document 06/18/24 10:49 SP (Rec: 06/18/24 11:39 SP [id number]) OP-PT Subjective Patient Comments Patient Comments Pt reports feels the exercises will be helpful although slow moving. She states her off pelvic alignment is affecting her L anteromedial area. PT-OP-F Manual Assessment Start: 06/12/24 15:56 Freq: Status: Active Protocol: Document 06/12/24 11:40 DCW (Rec: 06/12/24 16:54 DCW [id number]) Manual Assessments Joint Mobility Assessment Joint Mobility Assessment right ASIS elevated/left ASIS depressed PT-OP-M Strength Start: 06/12/24 15:56 Freq: Status: Active Protocol: Document 06/12/24 11:40 DCW (Rec: 06/12/24 16:54 DCW [id number]) Hip Strength Hip Manual Muscle Testing Right Flexion (L2) 4 Good Abduction 3+ Fair+ Adduction 4 Good External Rotation 4+ Good+ Left Flexion (L2) 4- Good- Abduction 3+ Fair+ Adduction 4- Good- External Rotation 4 Good Knee Strength Knee Manual Muscle Testing Right Flexion (S2) 4 Good Extension (L3) 4 Good Left Flexion (S2) 4 Good Extension (L3) 4 Good PT-OP-Q Treatments Start: 06/12/24 15:56 Freq: Status: Active Protocol: Document 06/18/24 10:49 SP (Rec: 06/18/24 11:39 SP [id number]) Therapeutic Exercises Supine Exercises Fig 4 stretch Supine Exercise Name Reviewed self HEP per physician Side left Reps/Minutes 30 SH Comments good form, cued level pelvis, PPT self HEP Supine Exercise Name adductor stretch butter fly per physician Reps/Minutes 30 SH x3 home Comments performed Pelvic Realignment Supine Exercise Name Supine adductor ball squeeze, one leg pelvic lift, one leg press/hold Side bilateral Reps/Minutes 3 SH x5 reps Comments B adductor, L hip flexion isometric/R hip ext tavares Standing Exercises Resisted hip Standing Exercise Name reviewed physician: hip ext and abd Side bilateral Equipment Used Tb #3 green in PT (red home) Reps/Minutes 2x10 Comments contact post, good response no pain Pallof Press Standing Exercise Name Pallof Press Side bilateral Resistance Lv 3 paimiut green Reps/Minutes 10 reps each side Comments cued feet //, soft knee bent, PPT Other Exercises Self STMs Other Exercise Name ball wall anterolateral hip, rolling pin quad Side left Comments good feedback response Manual Therapy Treatment Consent Patient gave verbal consent for manual Yes treatment Other Other Manual Treatments Pelvic MET: -L ilium anterior and elevated , correction resisted hip extension 90/90 and abduction isometrics 5 SH x5. Reviewed self hip isometric ext -R MET instructed self core isometric 90/90 hip flexion isometric- provided HO for home carryover PT-OP-T Assessment and Plan Start: 06/12/24 15:56 Freq: Status: Active Protocol: Document 06/18/24 10:49 SP (Rec: 06/18/24 11:39 SP [id number]) Physical Therapy Assessment Goals Two Impairment Pt experiencing difficulty with gait due to pain in SI Braille Operator Goal (LTG) Pt to ambulate one mile without and AD with a WNL gait pattern in order to demonstrate a return to prior functional levels. LTG Duration 09/10/24 One Impairment Pt does not have an appropriate home exercise program Short Term Goal (STG) Pt to be independent and compliant with an appropriate HEP STG Duration 07/13/24 Assessment Summary Assessment Pt improved MET pelvic alignment corrections with manual and instruction self performance hip flexion isometric on R and hip extension on L, Mendez pelvic lift and adduction home as instructed last tx. Cues today during paloff for feet, knees and PPT with TA lumbar to allow level pelvic, core activiation with reports no LB recruitment irritation after corrrections. Reviewed self stretching was given by physician with good form and helpful to pelvic alignment support today. ALso reviewed resisted hip ext and abd given by physician with same cues netural pelvis and TA, good form for progression strength. Physical Therapy Plan Frequency and Duration Frequency of Treatment 2x/Week Plan of Care Start Date 06/12/24 Plan of Care End Date 09/10/24 Therapeutic Interventions Therapeutic Interventions Balance Training,Gait Training ,Home Exercise Program,Joint Mobilizations,Manual Therapy, Neuromuscular Re-education, Patient/Caregiver Education, Self-Care/Home Management,Soft Tissue Mobilization, Therapeutic Activities, Therapeutic Exercises Modalities Cold Pack/Ice Massage,Electric Stimulation,Hot Packs, Ultrasound Next Visit Focus/Plan Next Note Type Treatment Note Next Visit Plan Reheck physician HEP so upto date on all she is doing home. PT POC: Hip strengthening, SI mobilization, gait training
--- NOTE | 2024-06-24 12:15 | PT.OTN ---
Current Diagnoses Presence of left artificial hip joint (06/24/24) Physical Therapy Treatment Note PT-OP-A Visit Information Start: 06/12/24 15:56 Freq: Status: Active Protocol: Document 06/24/24 11:30 DCW (Rec: 06/24/24 12:15 DCW [id number]) Out-Patient Physical Therapy Visit Information Visit Information Visit Start Time 11:30 Visit Stop Time 12:15 Visit Number 3 Number of MULTIFOLD OPERATOR Visits 0 Evaluation Information Evaluation Date 06/12/24 PT-OP-B Current Condition Start: 06/12/24 15:56 Freq: Status: Active Protocol: Document 06/12/24 11:40 DCW (Rec: 06/12/24 16:13 DCW [id number]) Current Condition History of Current Condition Onset Date 04/27/24 Current Complaints L HARLEEN - posterior approach, left hip and leg pain History of Current Condition Pt is a 68 year old female presenting to skilled therapy 1.5 months s/p left posterior HARLEEN. Pt reports her surgery was 04/27/24, she came home , and then the following day , was lying in bed, and with a pillow between her legs, rolled onto her right side ( which they told me I was allowed to do). Pt felt a clunk and shift in her left hip, but I was still on strong pain drugs, so she just went to sleep. Upon waking the next day, she struggled with walking, and felt like she had a leg length discrepancy. Has had imaging, and there is no problem with the hardware. She has seen multiple PTs for her post-op rehab, has been telling them that her SI feels out, but reports they seem to dismiss what she tells them. At her one month follow-up with her surgeon, she brought it up, and he agreed that it was an SI issue. Pt was able to get an appointment with a sports medicine MD two days ago, which helped a lot, but it's starting to pull back out again. Main goal is to get her hips and pelvis more stable, strengthen her core, and eliminate pain at SI. Feels like her actual HARLEEN recovery has gone well. PT-OP-C Subjective Start: 06/12/24 15:56 Freq: Status: Active Protocol: Document 06/24/24 11:30 DCW (Rec: 06/24/24 12:15 DCW [id number]) OP-PT Subjective Patient Comments Patient Comments Pt notes she had a clunk in her anterior hip when sitting on her couch, and immediately had relief of anterior hip pain. Continues to have pain with ambulation PT-OP-F Manual Assessment Start: 06/12/24 15:56 Freq: Status: Active Protocol: Document 06/12/24 11:40 DCW (Rec: 06/12/24 16:54 DCW [id number]) Manual Assessments Joint Mobility Assessment Joint Mobility Assessment right ASIS elevated/left ASIS depressed PT-OP-M Strength Start: 06/12/24 15:56 Freq: Status: Active Protocol: Document 06/12/24 11:40 DCW (Rec: 06/12/24 16:54 DCW [id number]) Hip Strength Hip Manual Muscle Testing Right Flexion (L2) 4 Good Abduction 3+ Fair+ Adduction 4 Good External Rotation 4+ Good+ Left Flexion (L2) 4- Good- Abduction 3+ Fair+ Adduction 4- Good- External Rotation 4 Good Knee Strength Knee Manual Muscle Testing Right Flexion (S2) 4 Good Extension (L3) 4 Good Left Flexion (S2) 4 Good Extension (L3) 4 Good PT-OP-Q Treatments Start: 06/12/24 15:56 Freq: Status: Active Protocol: Document 06/24/24 11:30 DCW (Rec: 06/24/24 12:15 DCW [id number]) Therapeutic Exercises Supine Exercises Be Stretch Supine Exercise Name Hip Flexor stretch - off bed Standing Exercises Hip Flexor Standing Exercise Name Hip Flexor Stretch - knee on table Side left Manual Therapy Treatment Consent Patient gave verbal consent for manual Yes treatment Manual Traction Lower Extremity Details L LE long-axis Body Position Supine PT-OP-T Assessment and Plan Start: 06/12/24 15:56 Freq: Status: Active Protocol: Document 06/24/24 11:30 DCW (Rec: 06/24/24 12:15 DCW [id number]) Physical Therapy Assessment Assessment Summary Assessment Good response to activities. Provided video on phone for hip flexor stretch, patella mobility, and gait stabilization. Pt making notable progress with stabilization of pelvis. Physical Therapy Plan Frequency and Duration Frequency of Treatment 2x/Week Plan of Care Start Date 06/12/24 Plan of Care End Date 09/10/24 Therapeutic Interventions Therapeutic Interventions Balance Training,Gait Training ,Home Exercise Program,Joint Mobilizations,Manual Therapy, Neuromuscular Re-education, Patient/Caregiver Education, Self-Care/Home Management,Soft Tissue Mobilization, Therapeutic Activities, Therapeutic Exercises Modalities Cold Pack/Ice Massage,Electric Stimulation,Hot Packs, Ultrasound Next Visit Focus/Plan Next Note Type Treatment Note Next Visit Plan Reheck physician HEP so upto date on all she is doing home. PT POC: Hip strengthening, SI mobilization, gait training
--- NOTE | 2024-07-15 13:03 | PT.OTN ---
Current Diagnoses Presence of left artificial hip joint (07/15/24) Physical Therapy Treatment Note PT-OP-A Visit Information Start: 06/12/24 15:56 Freq: Status: Active Protocol: Document 07/15/24 12:18 DCW (Rec: 07/15/24 13:03 DCW [id number]) Out-Patient Physical Therapy Visit Information Visit Information Visit Type Treatment Note Visit Start Time 12:18 Visit Stop Time 13:00 Visit Number 4 Number of CRYPTOZOOLOGIST Visits 0 Evaluation Information Evaluation Date 06/12/24 PT-OP-B Current Condition Start: 06/12/24 15:56 Freq: Status: Active Protocol: Document 06/12/24 11:40 DCW (Rec: 06/12/24 16:13 DCW [id number]) Current Condition History of Current Condition Onset Date 04/27/24 Current Complaints L HARLEEN - posterior approach, left hip and leg pain History of Current Condition Pt is a 68 year old female presenting to skilled therapy 1.5 months s/p left posterior HARLEEN. Pt reports her surgery was 04/27/24, she came home , and then the following day , was lying in bed, and with a pillow between her legs, rolled onto her right side ( which they told me I was allowed to do). Pt felt a clunk and shift in her left hip, but I was still on strong pain drugs, so she just went to sleep. Upon waking the next day, she struggled with walking, and felt like she had a leg length discrepancy. Has had imaging, and there is no problem with the hardware. She has seen multiple PTs for her post-op rehab, has been telling them that her SI feels out, but reports they seem to dismiss what she tells them. At her one month follow-up with her surgeon, she brought it up, and he agreed that it was an SI issue. Pt was able to get an appointment with a sports medicine MD two days ago, which helped a lot, but it's starting to pull back out again. Main goal is to get her hips and pelvis more stable, strengthen her core, and eliminate pain at SI. Feels like her actual HARLEEN recovery has gone well. PT-OP-C Subjective Start: 06/12/24 15:56 Freq: Status: Active Protocol: Document 07/15/24 12:18 DCW (Rec: 07/15/24 13:03 DCW [id number]) OP-PT Subjective Patient Comments Patient Comments It feels good for a bit, but then just goes back. I think we need to focus on something else. PT-OP-F Manual Assessment Start: 06/12/24 15:56 Freq: Status: Active Protocol: Document 06/12/24 11:40 DCW (Rec: 06/12/24 16:54 DCW [id number]) Manual Assessments Joint Mobility Assessment Joint Mobility Assessment right ASIS elevated/left ASIS depressed PT-OP-M Strength Start: 06/12/24 15:56 Freq: Status: Active Protocol: Document 06/12/24 11:40 DCW (Rec: 06/12/24 16:54 DCW [id number]) Hip Strength Hip Manual Muscle Testing Right Flexion (L2) 4 Good Abduction 3+ Fair+ Adduction 4 Good External Rotation 4+ Good+ Left Flexion (L2) 4- Good- Abduction 3+ Fair+ Adduction 4- Good- External Rotation 4 Good Knee Strength Knee Manual Muscle Testing Right Flexion (S2) 4 Good Extension (L3) 4 Good Left Flexion (S2) 4 Good Extension (L3) 4 Good PT-OP-Q Treatments Start: 06/12/24 15:56 Freq: Status: Active Protocol: Document 07/15/24 12:18 DCW (Rec: 07/15/24 13:03 DCW [id number]) Therapeutic Exercises Supine Exercises Bridging Supine Exercise Name Bridging Sidelying Exercises Hip Abduction Sidelying Exercise Name Hip Abduction Side left Clamshell Sidelying Exercise Name Clamshell Side left Sitting Exercises Hip Abduction Sitting Exercise Name Hip Abduction - 60 second hold for Glute med activation PT-OP-T Assessment and Plan Start: 06/12/24 15:56 Freq: Status: Active Protocol: Document 07/15/24 12:18 DCW (Rec: 07/15/24 13:03 DCW [id number]) Physical Therapy Assessment Assessment Summary Assessment Pt complains of anteriorly and superiorly shifted pelvis on left, however when lying down, pelvis appears to be aligned well. Pt shifting weight to right and hiking left hip in order to decrease weight bearing through left. Worked today on focusing on increased hip strengthening to improve weight bearing and comfort standing on left leg. Pt tolerated well, very happy with this approach. Physical Therapy Plan Frequency and Duration Frequency of Treatment 2x/Week Plan of Care Start Date 06/12/24 Plan of Care End Date 09/10/24 Therapeutic Interventions Therapeutic Interventions Balance Training,Gait Training ,Home Exercise Program,Joint Mobilizations,Manual Therapy, Neuromuscular Re-education, Patient/Caregiver Education, Self-Care/Home Management,Soft Tissue Mobilization, Therapeutic Activities, Therapeutic Exercises Modalities Cold Pack/Ice Massage,Electric Stimulation,Hot Packs, Ultrasound Next Visit Focus/Plan Next Note Type Treatment Note Next Visit Plan Reheck physician GILBERT so upto date on all she is doing home. PT POC: Hip strengthening, SI mobilization, gait training
--- NOTE | 2024-07-29 12:20 | PT.OTN ---
Current Diagnoses Presence of left artificial hip joint (07/29/24) Physical Therapy Treatment Note PT-OP-A Visit Information Start: 06/12/24 15:56 Freq: Status: Active Protocol: Document 07/29/24 11:30 DCW (Rec: 07/29/24 12:20 DCW [id number]) Out-Patient Physical Therapy Visit Information Visit Information Visit Type Treatment Note Visit Start Time 11:30 Visit Stop Time 12:15 Visit Number 5 Number of POULTRY HUSBANDMAN Visits 0 Evaluation Information Evaluation Date 06/12/24 PT-OP-B Current Condition Start: 06/12/24 15:56 Freq: Status: Active Protocol: Document 06/12/24 11:40 DCW (Rec: 06/12/24 16:13 DCW [id number]) Current Condition History of Current Condition Onset Date 04/27/24 Current Complaints L HARLEEN - posterior approach, left hip and leg pain History of Current Condition Pt is a 68 year old female presenting to skilled therapy 1.5 months s/p left posterior HARLEEN. Pt reports her surgery was 04/27/24, she came home , and then the following day , was lying in bed, and with a pillow between her legs, rolled onto her right side ( which they told me I was allowed to do). Pt felt a clunk and shift in her left hip, but I was still on strong pain drugs, so she just went to sleep. Upon waking the next day, she struggled with walking, and felt like she had a leg length discrepancy. Has had imaging, and there is no problem with the hardware. She has seen multiple PTs for her post-op rehab, has been telling them that her SI feels out, but reports they seem to dismiss what she tells them. At her one month follow-up with her surgeon, she brought it up, and he agreed that it was an SI issue. Pt was able to get an appointment with a sports medicine MD two days ago, which helped a lot, but it's starting to pull back out again. Main goal is to get her hips and pelvis more stable, strengthen her core, and eliminate pain at SI. Feels like her actual HARLEEN recovery has gone well. PT-OP-C Subjective Start: 06/12/24 15:56 Freq: Status: Active Protocol: Document 07/29/24 11:30 DCW (Rec: 07/29/24 12:20 DCW [id number]) OP-PT Subjective Patient Comments Patient Comments Pt reports she is feeling a difference in her strength, has been consistent with her HEP. Continues to have pain in anterior thigh and anterior hip. PT-OP-F Manual Assessment Start: 06/12/24 15:56 Freq: Status: Active Protocol: Document 06/12/24 11:40 DCW (Rec: 06/12/24 16:54 DCW [id number]) Manual Assessments Joint Mobility Assessment Joint Mobility Assessment right ASIS elevated/left ASIS depressed PT-OP-M Strength Start: 06/12/24 15:56 Freq: Status: Active Protocol: Document 06/12/24 11:40 DCW (Rec: 06/12/24 16:54 DCW [id number]) Hip Strength Hip Manual Muscle Testing Right Flexion (L2) 4 Good Abduction 3+ Fair+ Adduction 4 Good External Rotation 4+ Good+ Left Flexion (L2) 4- Good- Abduction 3+ Fair+ Adduction 4- Good- External Rotation 4 Good Knee Strength Knee Manual Muscle Testing Right Flexion (S2) 4 Good Extension (L3) 4 Good Left Flexion (S2) 4 Good Extension (L3) 4 Good PT-OP-Q Treatments Start: 06/12/24 15:56 Freq: Status: Active Protocol: Document 07/29/24 11:30 DCW (Rec: 07/29/24 12:20 DCW [id number]) Therapeutic Exercises Standing Exercises Calf Stretch Standing Exercise Name Step stretch, runner's stretch Other Exercises Quadruped Other Exercise Name Bird Dog Manual Therapy Treatment Soft Tissue Mobilization Hip Flexor Body Location Left hip flexor Mobilization Type Strumming,Sustained Pressure Intensity/Depth Moderate Calf Body Location Left Calf Mobilization Type Strumming,Sustained Pressure Intensity/Depth Superficial Joint Mobilizations SI Joint SI mobs PT-OP-T Assessment and Plan Start: 06/12/24 15:56 Freq: Status: Active Protocol: Document 07/29/24 11:30 DCW (Rec: 07/29/24 12:20 DCW [id number]) Physical Therapy Assessment Goals Two Impairment Pt experiencing difficulty with gait due to pain in SI Halfway Goal (LTG) Pt to ambulate one mile without and AD with a WNL gait pattern in order to demonstrate a return to prior functional levels. LTG Duration 09/10/24 One Impairment Pt does not have an appropriate home exercise program Short Term Goal (STG) Pt to be independent and compliant with an appropriate HEP STG Duration 07/13/24 Assessment Summary Assessment Pt does not appear to be having referred pain from SI, appears more likely inflammation of hip flexor due to over use. Additionally, pt experiencing increased tone in left proximal calf, potentially due to compensatory movements. Provided pt with handouts for stretching and core strengthening, advised to temporarily stop HEP that involved hip flexors, like forward monster walks. Pt in agreement. Physical Therapy Plan Frequency and Duration Frequency of Treatment 2x/Week Plan of Care Start Date 06/12/24 Plan of Care End Date 09/10/24 Therapeutic Interventions Therapeutic Interventions Balance Training,Gait Training ,Home Exercise Program,Joint Mobilizations,Manual Therapy, Neuromuscular Re-education, Patient/Caregiver Education, Self-Care/Home Management,Soft Tissue Mobilization, Therapeutic Activities, Therapeutic Exercises Modalities Cold Pack/Ice Massage,Electric Stimulation,Hot Packs, Ultrasound Next Visit Focus/Plan Next Note Type Treatment Note Next Visit Plan Reheck physician GILBERT so upto date on all she is doing home. PT POC: Hip strengthening, SI mobilization, gait training
--- NOTE | 2024-08-13 11:31 | PT.OTN ---
Current Diagnoses Presence of left artificial hip joint (08/13/24) Physical Therapy Treatment Note PT-OP-A Visit Information Start: 06/12/24 15:56 Freq: Status: Active Protocol: Document 08/13/24 10:40 DCW (Rec: 08/13/24 11:31 DCW [id number]) Out-Patient Physical Therapy Visit Information Visit Information Visit Type Treatment Note Visit Start Time 10:40 Visit Stop Time 11:25 Visit Number 6 Number of FAIRING MAN Visits 0 Evaluation Information Evaluation Date 06/12/24 PT-OP-B Current Condition Start: 06/12/24 15:56 Freq: Status: Active Protocol: Document 06/12/24 11:40 DCW (Rec: 06/12/24 16:13 DCW [id number]) Current Condition History of Current Condition Onset Date 04/27/24 Current Complaints L HARLEEN - posterior approach, left hip and leg pain History of Current Condition Pt is a 68 year old female presenting to skilled therapy 1.5 months s/p left posterior HARLEEN. Pt reports her surgery was 04/27/24, she came home , and then the following day , was lying in bed, and with a pillow between her legs, rolled onto her right side ( which they told me I was allowed to do). Pt felt a clunk and shift in her left hip, but I was still on strong pain drugs, so she just went to sleep. Upon waking the next day, she struggled with walking, and felt like she had a leg length discrepancy. Has had imaging, and there is no problem with the hardware. She has seen multiple PTs for her post-op rehab, has been telling them that her SI feels out, but reports they seem to dismiss what she tells them. At her one month follow-up with her surgeon, she brought it up, and he agreed that it was an SI issue. Pt was able to get an appointment with a sports medicine MD two days ago, which helped a lot, but it's starting to pull back out again. Main goal is to get her hips and pelvis more stable, strengthen her core, and eliminate pain at SI. Feels like her actual HARLEEN recovery has gone well. PT-OP-C Subjective Start: 06/12/24 15:56 Freq: Status: Active Protocol: Document 08/13/24 10:40 DCW (Rec: 08/13/24 11:31 DCW [id number]) OP-PT Subjective Patient Comments Patient Comments Pt had been researching some natural treatments for tendonitis, was feeling very good, been able to go out walking, but yesterday was bent forward doing some gardening, and irritated her hip again. Still notes she is doing much better than previously. PT-OP-F Manual Assessment Start: 06/12/24 15:56 Freq: Status: Active Protocol: Document 06/12/24 11:40 DCW (Rec: 06/12/24 16:54 DCW [id number]) Manual Assessments Joint Mobility Assessment Joint Mobility Assessment right ASIS elevated/left ASIS depressed PT-OP-M Strength Start: 06/12/24 15:56 Freq: Status: Active Protocol: Document 06/12/24 11:40 DCW (Rec: 06/12/24 16:54 DCW [id number]) Hip Strength Hip Manual Muscle Testing Right Flexion (L2) 4 Good Abduction 3+ Fair+ Adduction 4 Good External Rotation 4+ Good+ Left Flexion (L2) 4- Good- Abduction 3+ Fair+ Adduction 4- Good- External Rotation 4 Good Knee Strength Knee Manual Muscle Testing Right Flexion (S2) 4 Good Extension (L3) 4 Good Left Flexion (S2) 4 Good Extension (L3) 4 Good PT-OP-Q Treatments Start: 06/12/24 15:56 Freq: Status: Active Protocol: Document 08/13/24 10:40 DCW (Rec: 08/13/24 11:31 DCW [id number]) Gym Equipment Shuttle Recovery Unilateral Squats Resistance 37# Shuttle Recovery Platform Stable Bilateral Squats Resistance 75# Shuttle Recovery Platform Stable Shuttle Balance Red Details WBOS, Staggered, Lateral weight shift Manual Therapy Treatment Soft Tissue Mobilization Hip Flexor Body Location Left hip flexor Mobilization Type Strumming,Sustained Pressure Intensity/Depth Moderate PT-OP-T Assessment and Plan Start: 06/12/24 15:56 Freq: Status: Active Protocol: Document 08/13/24 10:40 DCW (Rec: 08/13/24 11:31 DCW [id number]) Physical Therapy Assessment Impairments Impairments Activity Tolerance,Functional Activities,Functional Mobility ,Gait,Pain,Strength,Tone Goals Two Impairment Pt experiencing difficulty with gait due to pain in SI Usp Goal (LTG) Pt to ambulate one mile without and AD with a WNL gait pattern in order to demonstrate a return to prior functional levels. LTG Duration 09/10/24 One Impairment Pt does not have an appropriate home exercise program Short Term Goal (STG) Pt to be independent and compliant with an appropriate HEP STG Duration 07/13/24 Assessment Summary Assessment Pt exhibiting some good overall improvements in strength and functional mobility. Pt able to recover well from flare-up gardening yesterday. Has been compliant with HEP, doing very well overall. Currently has one follow-up visit in two weeks, will likely discharge following this visit if everything progresses as expected. Physical Therapy Plan Frequency and Duration Frequency of Treatment 2x/Week Plan of Care Start Date 06/12/24 Plan of Care End Date 09/10/24 Therapeutic Interventions Therapeutic Interventions Balance Training,Gait Training ,Home Exercise Program,Joint Mobilizations,Manual Therapy, Neuromuscular Re-education, Patient/Caregiver Education, Self-Care/Home Management,Soft Tissue Mobilization, Therapeutic Activities, Therapeutic Exercises Modalities Cold Pack/Ice Massage,Electric Stimulation,Hot Packs, Ultrasound Next Visit Focus/Plan Next Note Type Treatment Note Next Visit Plan PT POC: Hip strengthening, SI mobilization, gait training
--- NOTE | 2024-08-27 11:29 | PT.OTN ---
Current Diagnoses Presence of left artificial hip joint (08/27/24) Physical Therapy Treatment Note PT-OP-A Visit Information Start: 06/12/24 15:56 Freq: Status: Active Protocol: Document 08/27/24 10:45 DCW (Rec: 08/27/24 11:28 DCW [id number]) Out-Patient Physical Therapy Visit Information Visit Information Visit Type Treatment Note Visit Start Time 10:45 Visit Stop Time 11:25 Visit Number 7 Number of RAILROAD CONSTRUCTION DIRECTOR Visits 0 Evaluation Information Evaluation Date 06/12/24 PT-OP-B Current Condition Start: 06/12/24 15:56 Freq: Status: Active Protocol: Document 06/12/24 11:40 DCW (Rec: 06/12/24 16:13 DCW [id number]) Current Condition History of Current Condition Onset Date 04/27/24 Current Complaints L HARLEEN - posterior approach, left hip and leg pain History of Current Pt is a 68 year old female presenting to [facility] therapy 1.5 months s/p left posterior HARLEEN. Pt reports her surgery was 04/27/24, she came home 04/28/24, and then the following day, was lying in bed, and with a pillow between her legs, rolled onto her right side (which they told me I was allowed to do). Pt felt a clunk and shift in her left hip, but I was still on strong pain drugs, so she just went to sleep. Upon waking the next day, she struggled with walking, and felt like she had a leg length discrepancy. Has had imaging, and there is no problem with the hardware. She has seen multiple PTs for her post-op rehab, has been telling them that her SI feels out, but reports they seem to dismiss what she tells them. At her one month follow-up with her surgeon, she brought it up, and he agreed that it was an SI issue. Pt was able to get an appointment with a sports medicine MD two days ago, which helped a lot, but it's starting to pull back out again. Main goal is to get her hips and pelvis more stable, strengthen her core, and eliminate pain at SI. Feels like her actual HARLEEN recovery has gone well. PT-OP-C Subjective Start: 06/12/24 15:56 Freq: Status: Active Protocol: Document 08/27/24 10:45 DCW (Rec: 08/27/24 11:28 DCW [id number]) OP-PT Subjective Patient Comments Patient Comments Pt very happy with current functional levels, feels good about progress. PT-OP-F Manual Assessment Start: 06/12/24 15:56 Freq: Status: Active Protocol: Document 06/12/24 11:40 DCW (Rec: 06/12/24 16:54 DCW [id number]) Manual Assessments Joint Mobility Assessment Joint Mobility right ASIS elevated/left ASIS depressed Assessment PT-OP-M Strength Start: 06/12/24 15:56 Freq: Status: Active Protocol: Document 06/12/24 11:40 DCW (Rec: 06/12/24 16:54 DCW [id number]) Hip Strength Hip Manual Muscle Testing Right Flexion (L2) 4 Good Abduction 3+ Fair+ Adduction 4 Good External Rotation 4+ Good+ Left Flexion (L2) 4- Good- Abduction 3+ Fair+ Adduction 4- Good- External Rotation 4 Good Knee Strength Knee Manual Muscle Testing Right Flexion (S2) 4 Good Extension (L3) 4 Good Left Flexion (S2) 4 Good Extension (L3) 4 Good PT-OP-Q Treatments Start: 06/12/24 15:56 Freq: Status: Active Protocol: Document 08/27/24 10:45 DCW (Rec: 08/27/24 11:28 DCW [id number]) Gym Equipment Shuttle Balance Red Details WBOS, Staggered, Lateral weight shift Therapeutic Exercises Supine Exercises SLR Supine Exercise Name PPT /c SLR Side bilateral Reps/Minutes 5 hold Standing Exercises Resisted hip Standing Exercise Resisted side-stepping Name Side bilateral Equipment Used Green loop Reps/Minutes 2x10 Comments Noted moderate discomfort in anterior hip Manual Therapy Treatment Consent Patient gave verbal Yes consent for manual treatment Soft Tissue Mobilization Hip Flexor Body Location Left hip flexor Mobilization Type Strumming,Sustained Pressure Intensity/Depth Moderate Calf Body Location Left Calf Mobilization Type Strumming,Sustained Pressure Intensity/Depth Superficial Neuro Re-Education Treatment Balance Activities SLS Details SLS Surface Firm, Foam PT-OP-T Assessment and Plan Start: 06/12/24 15:56 Freq: Status: Active Protocol: Document 08/27/24 10:45 DCW (Rec: 08/27/24 11:28 DCW [id number]) Physical Therapy Assessment Impairments Impairments Activity Tolerance,Functional Activities,Functional Mobility,Gait,Pain,Strength,Tone Goals Two Impairment Pt experiencing difficulty with gait due to pain in SI Motorcycle Repairer Goal (LTG) Pt to ambulate one mile without and AD with a WNL gait pattern in order to demonstrate a return to prior functional levels. LTG Duration Met One Impairment Pt does not have an appropriate home exercise program Short Term Goal (STG Pt to be independent and compliant with an appropriate ) HEP STG Duration Met Assessment Summary Assessment Pt continues to demonstrate great progress, no notable deficits at this time. Pt feels comfortable with her HEP, doing well. Pt has met all goals, agreeable to discharge. Physical Therapy Plan Frequency and Duration Frequency of 2x/Week Treatment Plan of Care Start 06/12/24 Date Plan of Care End 09/10/24 Date Therapeutic Interventions Therapeutic Balance Training,Gait Training,Home Exercise Program, Interventions Joint Mobilizations,Manual Therapy,Neuromuscular Re- education,Patient/Caregiver Education,Self-Care/Home Management,Soft Tissue Mobilization,Therapeutic Activities,Therapeutic Exercises Modalities Cold Pack/Ice Massage,Electric Stimulation,Hot Packs, Ultrasound Discharge Physical Therapy Discharge Reasons Goals Met Next Visit Focus/Plan Next Note Type Discharge Summary
== END 2024-08-28 13:28 | disposition home or self-care (01) ==
LOC: PHYS 10:45
PROVIDERS: Family Provider Family Medicine; PCP Student in an Organized Health Care Education/Training Program; Referring Provider Orthopaedic Surgery; Visit Provider Orthopaedic Surgery
DX: Z96.642 Presence of left artificial hip joint (principal)
CPT/HCPCS: 97110; 97112; 97140; 97163

== ENCOUNTER → 2025-03-09 08:14 | Outpatient (CLI) | payer MEDICARE, OTHER, SELFPAY ==
--- NOTE | 2025-03-09 08:16 | DI.RAD.S_ITS ---
PROCEDURE: XR FOOT LT MIN 3V INDICATIONS: Rule out OA, effusion, fracture TECHNIQUE: 3 views of the foot were acquired. COMPARISON: None. FINDINGS: Bones: No fractures or dislocations. No suspicious bony lesions. Mild 1st MTP joint osteoarthritis. Hallux valgus deformity. Large plantar calcaneal bone spur. Soft tissues: No tibiotalar joint effusion. Achilles tendon appears normal. IMPRESSION: No acute bony abnormality. Dictated by: Mercedes Aragon MD, PhD on 03/09/2025 at 9:21 Approved by: Mercedes Aragon MD, PhD on 03/09/2025 at 9:22
--- NOTE | 2025-03-09 08:16 | DI.RAD.S_ITS ---
PROCEDURE: XR KNEE RT 3V INDICATIONS: Pain. Rule out OA, effusion, fracture TECHNIQUE: 3 views of the knee were acquired. COMPARISON: [facility], CR, XR KNEE LT 3V, 03/09/2025, 8:13. FINDINGS: Bones: No fractures or dislocations. No suspicious bony lesions. 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 Soft tissues: No joint effusion. No suspicious soft tissue calcifications. IMPRESSION: No acute bony abnormality or significant effusion. Dictated by: Mercedes Aragon MD, PhD on 03/09/2025 at 9:22 Approved by: Mercedes Aragon MD, PhD on 03/09/2025 at 9:23
--- NOTE | 2025-03-09 08:16 | DI.RAD.S_ITS ---
PROCEDURE: XR KNEE LT 3V INDICATIONS: Pain. Rule out OA, effusion, fracture TECHNIQUE: 3 views of the knee were acquired. COMPARISON: None. FINDINGS: Bones: No fractures or dislocations. No suspicious bony lesions. 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 Soft tissues: No joint effusion. No suspicious soft tissue calcifications. IMPRESSION: No acute bony abnormality or significant effusion. Dictated by: Mercedes Aragon MD, PhD on 03/09/2025 at 9:22 Approved by: Mercedes Aragon MD, PhD on 03/09/2025 at 9:22
== END ==
PROVIDERS: Family Provider Family Medicine; PCP Family Medicine; Referring Provider Chiropractor; Visit Provider Chiropractor
DX: S80.02XA Contusion of left knee, initial encounter (principal); S80.01XA Contusion of right knee, initial encounter; S90.32XA Contusion of left foot, initial encounter; M19.072 Primary osteoarthritis, left ankle and foot; M20.12 Hallux valgus (acquired), left foot; M77.32 Calcaneal spur, left foot; M17.0 Bilateral primary osteoarthritis of knee; X58.XXXA Exposure to other specified factors, initial encounter
CPT/HCPCS: 73562; 73630

== ENCOUNTER → 2025-03-09 09:58 | Outpatient (CLI) | payer MEDICARE, OTHER, SELFPAY ==
--- NOTE | 2025-03-09 09:59 | DI.US.S_ITS ---
PROCEDURE: US CAROTID DOPPLER BI INDICATIONS: dizziness TECHNIQUE: Color and pulse Doppler interrogation was performed of both carotid systems, with image documentation and velocity measurements. COMPARISON: None. FINDINGS: Stenosis calculations are based on SRU ([employer] in [employer]) criteria. Right side: Common carotid artery peak systolic velocity: 59 cm/sec. Internal carotid artery peak systolic velocity: 91 cm/sec. Internal carotid artery end diastolic velocity: 41 cm/sec. External carotid artery peak systolic velocity: 91 cm/sec. ICA/CCA peak systolic ratio: 1.5 . Hammond scale imaging description: Atherosclerotic plaques Percent internal carotid artery stenosis: Less than 50 percent . Vertebral artery: Flow direction is antegrade. Left side: Common carotid artery peak systolic velocity: 80 cm/sec. Internal carotid artery peak systolic velocity: 163 cm/sec. Internal carotid artery end diastolic velocity: 59 cm/sec. External carotid artery peak systolic velocity: 145 cm/sec. ICA/CCA peak systolic ratio: 2.0 . Hammond scale imaging description: Atherosclerotic plaques Percent internal carotid artery stenosis: 50-69 percent . Vertebral artery: Flow direction is antegrade. IMPRESSION: 1. In the right carotid artery, there is less than 50 percent stenosis based on peak systolic velocity criteria. 2. In the left carotid artery, there is 50-69 percent stenosis based on peak systolic velocity criteria. There appears to be bidirectional flow within the left proximal ICA of uncertain etiology. 3. Antegrade vertebral arteries. Dictated by: Anup Mathis M.D. on 03/09/2025 at 16:09 Approved by: Anup Mathis M.D. on 03/09/2025 at 16:12
== END ==
LOC: US 09:59
PROVIDERS: Family Provider Family Medicine; PCP Family Medicine; Referring Provider Family Medicine; Visit Provider Family Medicine
DX: I65.23 Occlusion and stenosis of bilateral carotid arteries (principal); D64.9 Anemia, unspecified; R53.82 Chronic fatigue, unspecified; R42 Dizziness and giddiness; S80.02XA Contusion of left knee, initial encounter; S80.01XA Contusion of right knee, initial encounter; S90.32XA Contusion of left foot, initial encounter; M19.072 Primary osteoarthritis, left ankle and foot; M20.12 Hallux valgus (acquired), left foot; M77.32 Calcaneal spur, left foot; M17.0 Bilateral primary osteoarthritis of knee; X58.XXXA Exposure to other specified factors, initial encounter
CPT/HCPCS: 73562; 73630; 93880